=== PATIENT | female | born 1965 | race Caucasian/White ===

== ENCOUNTER 2016-08-11 12:47 | Outpatient (CLI) | payer MEDICAID ==
[~2016-08-11] VITALS: Ht 157.5 cm; Wt 154.3 kg
[2016-08-11 13:20] VITALS: BP 138/80
[2016-08-11 13:51] LABS: BASOPHILS # (AUTO) 0.1 10^3/uL (0.0-0.1); BASOPHILS % (AUTO) 1 % (0-10); EOSINOPHILS # (AUTO) 0.2 10^3/uL (0.0-0.3); EOSINOPHILS % (AUTO) 2 % (0-10); LYMPHOCYTES # (AUTO) 2.6 X 10^3 (1.0-4.0); LYMPHOCYTES % (AUTO) 33 % (12-44); MEAN CORPUSCULAR HEMOGLOBIN 30 PG (25-34); MEAN CORPUSCULAR HGB CONC 33 G/DL (32-36); MEAN CORPUSCULAR VOLUME 91 FL (80-99); MEAN PLATELET VOLUME 10.3 FL (7.4-10.4); MONOCYTES # (AUTO) 0.8 X 10^3 (0.0-1.0); MONOCYTES % (AUTO) 10 % (0-12); NEUTROPHILS # (AUTO) 4.3 X 10^3 (1.8-7.8); NEUTROPHILS % (AUTO) 55 % (42-75); PLATELET COUNT 305 10^3/uL (130-400); RED BLOOD COUNT 4.95 10^6/uL (4.35-5.85); RED CELL DISTRIBUTION WIDTH 16.3 % (10.0-14.5); WHITE BLOOD COUNT 7.9 10^3/uL (4.3-11.0)
[2016-08-11 14:07] LABS: ANION GAP 15 MMOL/L (5-14); BLOOD UREA NITROGEN 14 MG/DL (7-18); BUN/CREATININE RATIO 20; CALCIUM 9.9 MG/DL (8.5-10.1); CARBON DIOXIDE 24 MMOL/L (21-32); CHLORIDE 101 MMOL/L (98-107); CREATININE SERUM 0.71 MG/DL (0.60-1.30); GFR ESTIMATED > 60; GLUCOSE 201 MG/DL (70-105); POTASSIUM 3.4 MMOL/L (3.6-5.0); SODIUM 140 MMOL/L (135-145)
[2016-08-11] MEDS ORDERED: AMLO5TAB2 PO (16:03)
[2016-08-11] MEDS ORDERED: HYDR25TA4 PO (16:03)
[2016-08-11] MEDS ORDERED: METF500T8 PO (16:03)
[2016-08-11] MEDS ORDERED: VORT10TA PO (16:03)
[2016-08-11] MEDS ORDERED: ATEN50TA PO (16:03)
[2016-08-11] MEDS ORDERED: LURA20TA PO (16:03)
[2016-08-11] MEDS ORDERED: RT-ALBUINH IH (16:03)
[2016-08-11] MEDS ORDERED: ESTR0.5T PO (16:03)
[2016-08-11] MEDS ORDERED: ALB0.5V IH (16:03)
[2016-08-11] MEDS ORDERED: EVE1000C3 PO (16:03)
== END 2016-08-11 13:45 | disposition home or self-care (01) ==
LOC: PREOP 12:47
PROVIDERS: ATTEND Orthopaedic Surgery
DX: Z01.812 Encounter for preprocedural laboratory examination (principal); Z11.2 Encounter for screening for other bacterial diseases; M50.223 Other cervical disc displacement at C6-C7 level
CPT/HCPCS: 36415; 80048; 85025; 86850; 86900; 86901; 87081

== ENCOUNTER 2016-08-25 06:32 | Day surgery (SDC) | payer MEDICAID ==
[~2016-08-25] VITALS: Ht 157.5 cm; Wt 154.3 kg
[~2016-08-25 06:32] MED LIST: ALB0.5V IH; AMLO5TAB2 PO; ATEN50TA PO; ESTR0.5T PO; EVE1000C3 PO; HYDR25TA4 PO; LURA20TA PO; METF500T8 PO; RT-ALBUINH IH; VORT10TA PO
[2016-08-25 07:00] VITALS: BP 130/76
[2016-08-25] MEDS ORDERED: CATHETER FLUSH 10 ML SYR IV PRN (07:30)
[2016-08-25] MEDS ORDERED: CLINDAMYCIN 600 MG/NS 50 ML IVPB IV ONE ×2 (07:30)
[2016-08-25] MEDS ORDERED: ROCURONIUM 50 MG/5 ML (ZEMURON) VIAL IV ONE (07:45)
[2016-08-25] MEDS ORDERED: proPOfol 200 MG/20 ML (DIPRIVAN) VIAL IV ONE (07:45)
[2016-08-25] MEDS ORDERED: BACITRACIN 100,000 UNIT/NS 1000 ML POUR BOTTLE IR ONE ×2 (07:45)
[2016-08-25] MEDS ORDERED: LIDOCAINE PF 2% 5 ML (XYLOCAINE) VIAL ONE (07:45)
[2016-08-25] MEDS ORDERED: MIDAZOLAM 2 MG/2 ML (VERSED) VIAL ONE (07:46)
[2016-08-25] MEDS ORDERED: fentaNYL INJECTION 250 MCG/5 ML AMP ONE (07:46)
[2016-08-25] MEDS ORDERED: DEXMEDETOMIDINE 200 MCG/2 ML (PRECEDEX) VIAL IV ONE (07:50)
[2016-08-25] MEDS ORDERED: RT-ALBUTEROL SULF 2.5 MG/3 ML PRE-MIX VIAL ONE (07:51)
[2016-08-25] MEDS ORDERED: RT-ALBUTEROL SULF 2.5 MG/3 ML PRE-MIX VIAL IH STA (07:55)
[2016-08-25] MEDS ORDERED: NS (IVPB) 100 ML ONE (07:55)
[2016-08-25] MEDS ORDERED: LACTATED RINGERS 1,000 ML IV ONE ×2 (07:55→09:16)
[2016-08-25] MEDS: LACTATED RINGERS 1,000 ML IV PRN ×2 (07:56→09:33)
[2016-08-25] MEDS ORDERED: DEXAMETHASONE PF 10 MG/ML (DECADRON) VIAL ONE (09:15)
[2016-08-25] MEDS ORDERED: SEVOFLURANE (ULTANE) 15 ML INHAL SOLN ONE ×4 (09:16)
[2016-08-25] MEDS ORDERED: ONDANSETRON 4 MG/2 ML (SDV) Z0FRAN ONE (09:16)
[2016-08-25] MEDS ORDERED: GLYCOPYRROLATE 0.2 MG/ML (ROBINUL) 2 ML VIAL ONE (10:27)
[2016-08-25] MEDS ORDERED: NEOSTIGMINE (BLOXIVERZ ) 1 MG/1ML 10 ML VIAL ONE (10:27)
[2016-08-25] MEDS ORDERED: CYCLOBENZAPRINE 10 MG (FLEXERIL) TAB PO PRN (10:45)
[2016-08-25] MEDS ORDERED: BISACODYL 5 MG (DULCOLAX) TABLET PO PRN (10:45)
[2016-08-25] MEDS ORDERED: ONDANSETRON 4 MG/2 ML (SDV) Z0FRAN IV PRN (10:45)
[2016-08-25] MEDS ORDERED: MILK OF MAGNESIA 400 MG/5 ML 30 ML UDC PO PRN (10:45)
[2016-08-25] MEDS ORDERED: DOCUSATE SODIUM 100 MG (COLACE) CAP PO PRN (10:45)
[2016-08-25] MEDS ORDERED: ACETAMINOPHEN 325 MG TABLET/CAPLET (TYLENOL) PO PRN (10:45)
[2016-08-25] MEDS ORDERED: FAMOTIDINE 20 MG (PEPCID) TABLET PO SCH (10:45)
[2016-08-25] MEDS ORDERED: , IVP PRN (11:00)
[2016-08-25] MEDS ORDERED: morphine INJ 10 MG/ML 1ML (SYR OR VIAL) IVP PRN (11:00)
[2016-08-25 12:00] VITALS: BP 109/57
[2016-08-25] MEDS ORDERED: fentaNYL INJECTION 100 MCG/2 ML AMP IVP PRN (12:54)
[2016-08-25] MEDS: oxyCODONE/APAP 5/325MG (PERCOCET 5) TABLET PO PRN ×2 (14:47→20:03)
--- NOTE | 2016-08-25 14:48 | Diagnostic Imaging Report ---
EXAMINATION: Intraoperative views of the cervical spine. INDICATION: Cervical fusion of C6/[address] Barajas Fluoroscopy time provided is 30 seconds. IMPRESSION: Images provided demonstrate cervical spine in good alignment with anterior plate and screws along C6-7 seen with the disc cage placed. Dictated by: Dictated on workstation # [id number]
[2016-08-25] MEDS ORDERED: NS IV 1000 ML 1,000 ML IV SCH (15:15)
[2016-08-25 15:40] VITALS: BP 117/69
[2016-08-25] MEDS: NS IV 1000 ML 1,000 ML IV SCH (16:00)
[2016-08-25] MEDS: CLINDAMYCIN INJECTION 600 MG in NS (IVPB) 50 ML IV SCH (17:06)
[2016-08-25] MEDS: FAMOTIDINE 20 MG (PEPCID) TABLET PO SCH (20:02)
[2016-08-25] MEDS: SENNOSIDES 8.6 MG (SENOKOT) TAB PO SCH (20:02)
[2016-08-25 20:50] VITALS: BP 129/68
[2016-08-26 00:24] VITALS: BP 132/78
[2016-08-26] MEDS: CLINDAMYCIN INJECTION 600 MG in NS (IVPB) 50 ML IV SCH ×2 (00:31→09:41)
[2016-08-26 04:03] VITALS: BP 116/75
[2016-08-26] MEDS: NS IV 1000 ML 1,000 ML IV SCH (04:50)
[2016-08-26] MEDS: oxyCODONE/APAP 5/325MG (PERCOCET 5) TABLET PO PRN (06:21)
[2016-08-26] MEDS ORDERED: MULTIVIT W/MINERALS TAB (THERAGRAN M) PO SCH (07:00)
[2016-08-26] MEDS ORDERED: OXYC-197 PO (07:10)
--- NOTE | 2016-08-26 07:50 | Anesthesia-General Post-Op ---
General Patient Condition Mental Status/LOC: Same as Preop Cardiovascular: Satisfactory Nausea/Vomiting: Absent Respiratory: Satisfactory Pain: Controlled Complications: Absent Post Op Complications Complications None Follow Up Care/Instructions Patient Instructions None needed. Anesthesia/Patient Condition Patient Condition Patient is doing well, no complaints, stable vital signs, no apparent adverse anesthesia problems. No complications reported per nursing. D/C home per [facility] Criteria: No SHAMIR AZEVEDO CRNA Aug 26, 2016 07:50
[2016-08-26 08:00] VITALS: BP 127/82
--- NOTE | 2016-08-26 08:10 | Discharge Inst-Simple/Standard ---
Discharge Inst-Standard Discharge Medications New, Converted or Re-Newed RX: RX on Chart Patient Instructions/Follow Up Plan of Care/Instructions/FU: follow up in clinic in 2 weeks dont bend lift twist push or pull keep incision clean and dry Activity as Tolerated: No Discharge Diet: ADA Diet Return to The Hospital For: shortness of breath, weakness, change in mental status fever chills or wound drainage ANGELLA FERNANDEZ Aug 26, 2016 08:10
--- NOTE | 2016-08-26 08:17 | Progress Note (SOAP) ---
Subjective Date Seen by Provider: Aug 26, 2016 Time Seen by Provider: 07:00 Subjective/Events-last exam Laying in bed whittington x 4 with no complaints. Her LUE pain is gone and she demonstrates moving her UE without pain. She has no new symptoms to report. Review of Systems General: No Chills, No Night Sweats Pulmonary: Dyspnea, No Cough Cardiovascular: No: Chest Pain, Palpitations Gastrointestinal: No: Abdominal Pain, Nausea, Vomiting Musculoskeletal: neck pain Neurological: No: Change in speech, Confusion, Numbness, Weakness Objective Exam Vital Signs Date Time Temp Pulse Resp B/P (MAP) Pulse Ox O2 Delivery O2 Flow Rate FiO2 08/26/16 06:26 Nasal Cannula 3.00 08/26/16 04:03 96.4 69 20 116/75 95 Nasal Cannula 3.00 08/26/16 00:24 98.2 63 22 132/78 94 Nasal Cannula 3.00 08/25/16 20:50 97.4 67 20 129/68 93 Nasal Cannula 3.00 08/25/16 20:00 94 Nasal Cannula 3.00 08/25/16 15:40 96.0 68 20 117/69 95 Nasal Cannula 3.00 08/25/16 13:06 Nasal Cannula 3.00 08/25/16 12:00 98.0 83 20 109/57 93 Nasal Cannula 3.00 08/25/16 12:00 94 Nasal Cannula 3.00 I & O 08/26/16 07:00 Intake Total 3418 ml Output Total 850 ml Balance 2568 ml Capillary Refill : General Appearance: No Apparent Distress Respiratory: No Accessory Muscle Use, No Respiratory Distress Gastrointestinal: soft Extremity: Normal Range of Motion, Non Tender, No Calf Tenderness Neurologic/Psychiatric: Alert, Oriented x3, No Motor/Sensory Deficits Skin: Normal Color, Warm/Dry Assessment/Plan Assessment/Plan Assess & Plan/Chief Complaint Assessment: POD #1 s/p ACDF obesity diabetes COPD Plan: Elevate HOB IS at bedside monitor vitals possible d/c today Clinical Quality Measures DVT/VTE Risk/Contraindication: Risk Factor Score Per Nursin RFS Level Per Nursing on Admit: 4+=Very High ANGELLA FERNANDEZ Aug 26, 2016 08:17
[2016-08-26] MEDS: FAMOTIDINE 20 MG (PEPCID) TABLET PO SCH (09:41)
[2016-08-26] MEDS: SENNOSIDES 8.6 MG (SENOKOT) TAB PO SCH (09:41)
--- NOTE | 2016-08-26 09:58 | Physical Therapy Evaluation ---
PT Evaluation-General Medical Diagnosis Admission Date August 25, 2016 Medical Diagnosis: cervical herniation Onset Date: Aug 25, 2016 Therapy Diagnosis Therapy Diagnosis: debility Height/Weight Height (Feet): 5 Height (Inches): 2.00 Weight (Pounds): 340 Weight (Ounces): 2.0 Precautions Precautions/Isolations: Fall Prevention, Standard Precautions Referral Physician: Karl Reason for Referral: Evaluation/Treatment Medical History Additional Medical History per patient, unremarkable morbid obesity Current History s/p cervical repair due to herniation Reviewed History: Yes Social History Home: Single Level Current Living Status: Alone Prior/Core FIM Prior Level of Function Functional [place] Measure 0=Not Assessed/NA 4=Minimal Assistance 1=Total Assistance 5=Supervision or Setup 2=Maximal Assistance 6=Modified [place] 3=Moderate Assistance 7=Complete [place] Bed Mobility: 7 Transfers (B,C,W/C) (FIM): 7 Gait: 7 PT Evaluation-Current Subjective Patient rates cervical pain 3/10. Pain Numeric Pain Scale: 3 Location: Posterior Location Body Site: Neck Pain Description: Acute Objective Patient Orientation: Normal For Age Problem Solving: Good cervical collar ROM/Strength ROM Lower Extremities bilateral LE WNL Strenght Lower Extremities bilateral LE WNL Integumentary/Posture Integumentary refer to nursing notes Bowel Incontinence: No Bladder Incontinence: No Posture WNL Neuromuscular (Tone, Coordination, Reflexes) grossly intact Sensory Vision: Functional Hearing: Functional Sensation Right Lower Extremit: Intact Sensation Left Lower Extremity: Intact Transfers Functional [place] Measure 0=Not Assessed/NA 4=Minimal Assistance 1=Total Assistance 5=Supervision or Setup 2=Maximal Assistance 6=Modified [place] 3=Moderate Assistance 7=Complete [place] Transfers (B, C, W/C) (FIM): 6 Scootin Rollin Supine to/from Sit: 6 Sit to/from Stand: 6 Gait Mode of Locomotion: Walk Anticipated Mode of Locomotion: Walk Gait (FIM): 7 Distance (FIM): 3=150 ft Distance: 250' Gait Level of Assist: 7 Gait Assistive Device: None Comments/Gait Description safe and functional Balance Sitting Static: Normal Sitting Dynamic: Normal Standing Static: Normal Standing Dynamic: Normal Assessment/Needs 51 y.o. female, currently at [facility] with all gross motor skills, does not require skilled PT intervention at this time and has been instructed to ambulate PRN in hallway to prevent possible negative side effects. RN made aware. Rehab Potential: Good PT Plan Treatment/Plan Treatment Plan: Discontinue PT, goals met Treatment Plan: Other (eval) Treatment Duration: Aug 26, 2016 Frequency: 1 time per week Estimated Hrs Per Day: .25 hour per day Patient and/or Family Agrees t: Yes Safety Risks/Education Patient Education: Safety Issues Teaching Recipient: Patient Teaching Methods: Discussion Response to Teaching: Verbalize Understanding Discharge Recommendations Therapy D/C Recommendations: Home Independently Time/GCodes Time In: 906 Time Out: 916 Total Billed Treatment Time: 10 Total Billed Treatment 1 visit EVLowC 10 min MISTY ANGUIANO PT Aug 26, 2016 09:58
--- NOTE | 2016-08-26 10:42 | OPERATIVE REPORT ---
PROCEDURE PHYSICIAN: FRANCHESKA NASH DATE OF PROCEDURE: 08/25/2016 SURGEON: Dr. Karl D.O. EXECUTIVE DIRECTOR [employer] MARKETING: FIDE Otoole. This is a medically necessary procedure and painter assistant is necessary for retraction of vital neurovascular structures. Without an painter assistant, the procedure would not be possible. PREOPERATAIVE 1. Morbid obesity. 2. Cervical spinal stenosis, C6-7. 3. Herniated nucleus pulposus. POSTOPERATIVE DIAGNOSIS: 1. Morbid obesity. 2. Cervical spinal stenosis, C6-7 3. Herniated nucleus pulposus. PROCEDURE PERFORMED: 1. C6-7 anterior cervical discectomy and fusion. 2. Application of titanium cage, C6-7. 3. Application of anterior instrumentation, C6-7. 4. Use of human allograft for spine. 5. Use of local bone autograft. COMPLICATIONS: None. SPECIMENS SENT: None. DRAIN PLACED: Hemovac. INSTRUMENTATIONI UTILIZED: Nuvasive. HISTORY OF PRESENT ILLNESS: Ms. Cowart is a very pleasant 51-year-old morbidly obese female with a large, C6-7 paracentral herniation. She failed conservative treatment. She had extreme unrelenting upper extremity nerve pain. She did wish to proceed with operative intervention. OPERATION: The patient was identified by name on wrist band in the preoperative holding area. Her operative site was signed, consent was signed. SCDs were placed, neural monitoring was hooked up and antibiotics were started. She was taken operating room theater, placed under general endotracheal tube anesthesia and transferred to the operating room table in the supine position. She was prepped and draped in the usual sterile fashion. A formal timeout was conducted. At this point, a left-sided incision was made over the old medial aspect of the left sternocleidomastoid. Standard anterior cervical approach then took place. I placed a self retaining retractor, placed a Cash pin in the body of 6 and the body of 7. I placed distraction across the disc space. Please note that this entire process the entire procedure was made extremely difficult due to the patient's large body habitus. This made very difficult to identify the level that we were working on and once we were there accomplish the discectomy and fusion. At this point, I verified under lateral x-ray that my Cash pins were in the body of C6 and the body of C7. I then performed a discectomy and I took down the posterior longitudinal ligament, did bilateral foraminotomies. I then sized and chose the appropriate titanium cage, which I packed with human allograft and local bone autograft. I seated in the midline position. I then removed the Cash pin, placed a midline plate. I placed 2 screws in the body of 6 and 2 screws in the body of 7. I final tighten those screws. Final AP and lateral x-ray demonstrated appropriate positioning of the hardware. Neural monitoring had been stable throughout the procedure. I maintained hemostasis. I irrigated the wound. I closed the wound in my usual layered fashion utilizing 3-0 followed by running 4-0 Monofilament suture. I applied dressings. Took the patient in supine position to the PACU where she awoke without incident. She tolerated the procedure well. PLAN: The plan at this time is to admit the patient tonight for IV antibiotics, IV pain control and postoperative monitoring. Plan to discontinue her drain tomorrow discharge her home tomorrow. She knows to keep her wound clean and dry. She knows to wear her brace when she is out of bed. Job ID: [id number] Dictated Date: 08/25/2016 10:47:17 Clinical Assistant Professor Date: 08/26/2016 10:20:42 / manish
--- NOTE | 2016-08-26 11:34 | Occ Therapy Progress Note ---
Therapy Progress Note 1105 to 1110 Pt seen in room, up in bed. Pt has been released to be up ad helen and said that she has been taking herself to the bathroom, brushing her teeth, feeding herself. She said she has no numbness or tingling in UEs - has a shoulder problem that is pending treatment, not related to this surgery. She has adult children at home and anticipates no concerns re: self care. Pt to be discharged today. DC OT, no skilled need. visit YOBANI DE LA TORRE OT Aug 26, 2016 11:34
--- NOTE | 2016-08-26 11:37 | Diagnostic Imaging Report ---
INDICATION: Postop cervical spine fusion. COMPARISON: None. FINDINGS: Frontal and lateral radiographic views of the cervical spine were obtained and show postsurgical changes of anterior fusion at the C6-C7 level. Cervical spine is only well seen to the C6-C7 intervertebral disc space level. Evaluation beyond this is obscured secondary to overlying bony and soft tissue structures. Surgical hardware appears to be in appropriate position. Static alignment of the cervical spine is maintained. Vertebral body heights are preserved. No unexpected radiopaque foreign bodies are identified. There does appear to be some prevertebral soft tissue swelling. IMPRESSION: 1. There does appear to be some prevertebral soft tissue swelling, which may be related to recent post surgical status. 2. Otherwise, expected postsurgical changes of anterior fusion at the C6-C7 levels. Dictated by: Dictated on workstation # [id number]
[2016-08-26 13:34] VITALS: BP 127/82
== END 2016-08-26 13:37 | disposition home or self-care (01) ==
LOC: SDC 06:32 → 4TH 12:15 → SDC 08-26 13:37
PROVIDERS: ATTEND Orthopaedic Surgery
DX: M48.02 Spinal stenosis, cervical region (principal); M50.20 Other cervical disc displacement, unspecified cervical region; I10 Essential (primary) hypertension; J44.9 Chronic obstructive pulmonary disease, unspecified; E11.9 Type 2 diabetes mellitus without complications; Z79.899 Other long term (current) drug therapy; G47.33 Obstructive sleep apnea (adult) (pediatric); J45.909 Unspecified asthma, uncomplicated; E66.01 Morbid (severe) obesity due to excess calories; Z87.891 Personal history of nicotine dependence; F31.9 Bipolar disorder, unspecified; Z68.44 Body mass index [BMI] 60.0-69.9, adult
CPT/HCPCS: 72040; 82962; 94640; 94664

== ENCOUNTER 2018-02-24 09:40 | Outpatient (CLI) | payer MEDICAID ==
[~2018-02-24] VITALS: Ht 157.5 cm; Wt 142.4 kg
[~2018-02-24 09:40] MED LIST changes: -AMLO5TAB2 PO; +AMLO5TAB7 PO; +OXYC1TAB87 PO
[2018-02-24 09:49] VITALS: BP 129/78
[2018-02-24] MEDS ORDERED: ATEN25TA PO (10:34)
[2018-02-24 10:42] LABS: BASOPHILS # (AUTO) 0.1 10^3/uL (0.0-0.1); BASOPHILS % (AUTO) 1 % (0-10); EOSINOPHILS # (AUTO) 0.2 10^3/uL (0.0-0.3); EOSINOPHILS % (AUTO) 3 % (0-10); HEMATOCRIT 44 % (35-52); HEMOGLOBIN 14.6 G/DL (11.5-16.0); LYMPHOCYTES # (AUTO) 2.9 X 10^3 (1.0-4.0); LYMPHOCYTES % (AUTO) 33 % (12-44); MEAN CORPUSCULAR HEMOGLOBIN 30 PG (25-34); MEAN CORPUSCULAR HGB CONC 33 G/DL (32-36); MEAN CORPUSCULAR VOLUME 89 FL (80-99); MEAN PLATELET VOLUME 10.2 FL (7.4-10.4); MONOCYTES % (AUTO) 12 % (0-12); NEUTROPHILS # (AUTO) 4.4 X 10^3 (1.8-7.8); NEUTROPHILS % (AUTO) 51 % (42-75); PLATELET COUNT 316 10^3/uL (130-400); RED CELL DISTRIBUTION WIDTH 16.7 % (10.0-14.5); WHITE BLOOD COUNT 8.6 10^3/uL (4.3-11.0)
[2018-02-24] MEDS ORDERED: CHOL200085 PO (10:42)
[2018-02-24] MEDS ORDERED: CINN500C2 PO (10:42)
[2018-02-24] MEDS ORDERED: ASPI-983 PO (10:42)
[2018-02-24] MEDS ORDERED: ATEN50TA PO (10:42)
[2018-02-24] MEDS ORDERED: DICY10CA12 PO (10:42)
[2018-02-24] MEDS ORDERED: ESCI20TA45 PO (10:42)
[2018-02-24] MEDS ORDERED: BUPR150T7 PO (10:42)
[2018-02-24] MEDS ORDERED: CIDE600C PO (10:42)
[2018-02-24 10:58] LABS: BUN/CREATININE RATIO 17; CALCIUM 9.9 MG/DL (8.5-10.1); CARBON DIOXIDE 23 MMOL/L (21-32); CHLORIDE 101 MMOL/L (98-107); CREATININE SERUM 0.77 MG/DL (0.60-1.30); GFR ESTIMATED > 60; GLUCOSE 111 MG/DL (70-105); POTASSIUM 3.6 MMOL/L (3.6-5.0); SODIUM 137 MMOL/L (135-145)
== END 2018-02-24 10:45 | disposition home or self-care (01) ==
LOC: PREOP 09:40
PROVIDERS: ATTEND Orthopaedic Surgery
DX: Z01.812 Encounter for preprocedural laboratory examination (principal); Z11.2 Encounter for screening for other bacterial diseases; M48.02 Spinal stenosis, cervical region
CPT/HCPCS: 36415; 80048; 85025; 87081

== ENCOUNTER 2018-03-01 09:20 | Day surgery (SDC) | payer MEDICAID ==
[~2018-03-01] VITALS: Ht 157.5 cm; Wt 141.1 kg
[~2018-03-01 09:20] MED LIST changes: -AMLO5TAB7 PO; +AMLO5TAB9 PO; +ASPI-983 PO; +ATEN25TA PO; +BUPR150T7 PO; +CHOL200014 PO; +CIDE600C PO; +CINN500C2 PO; +DICY10CA12 PO; +ESCI20TA45 PO
[2018-03-01] MEDS ORDERED: LACTATED RINGERS 1,000 ML IV PRN (09:24)
[2018-03-01] MEDS ORDERED: BACITRACIN 100,000 UNIT/NS 1000 ML POUR BOTTLE IR ONE ×2 (09:45)
--- OUTSIDE RECORDS SUMMARY | 2018-03-01 09:45 | XMS REPORT ---
Author Author MINERVA MELVIN [facility] Address [address] [facility] [place] [address] Care Team Providers Care Tax Adjuster Name Role Phone OLEGARIO MINERVA Unavailable PROBLEMS Type Condition ICD9-CM Code [id number] Code Onset Dates Condition Status SNOMED Code Problem Unspecified vaginitis and vulvovaginitis 616.10 Active 683078497 Problem Unspecified essential hypertension 401.9 Active 42476733 Problem Acute sinusitis, unspecified 461.9 Active 39699134 Problem Pure hyperglyceridemia 272.1 Active 297722351 Problem Obesity, unspecified 278.00 Active 542887879 Problem Allergic rhinitis due to pollen 477.0 Active 20815035 Problem Essential hypertension, benign 401.1 Active 5941042 Problem Morbid obesity 278.01 Active 384346983 Problem Tension headache 307.81 Active 991673504 Problem Other screening mammogram V76.12 Active 45135919 Problem Routine gynecological examination V72.31 Active 220356214125282 Problem Need for prophylactic vaccination and inoculation, Influenza V04.81 Active 606949044 Problem Unspecified breast screening V76.10 Active 732069654 Problem Unspecified sleep disturbance 780.50 Active 35686445 Problem Other specified counseling V65.49 Active 519342911 Problem Asthma, unspecified, unspecified status 493.90 Active 27146706 ALLERGIES Substance Reaction Event Type Date Status Codeine Unknown Drug Allergy Dec, Active Penicillins Unknown Non Drug Allergy Dec, Active ENCOUNTERS Encounter Location Date Diagnosis [facility] [address] [id number][place] [id number] Dec, [facility] [address] [facility] [id number][place] [id number] Dec, Caries K02.9 [facility] [address] [id number] [facility] [id number][place] [id number] 12 Oct, 2018 Encounter for immunization Z23 [facility] [address] [id number][place] [id number] Sep, Dental examination Z01.20 [facility] [address] [id number] [id number] Feb, [facility] [id number][place] [id number] June, [facility] [address] [facility] [id number] [place] [address] May, [facility] [address] [id number], [place] [address] May, [facility] [id number] [place] [address] Apr, [facility] [id number] [place] [address] Apr, [facility] [id number] [place] [address] Jan, [facility] [address]65100[place], [place] [address] Jan, [facility] [address]65[address], [place] [address] Dec, [facility] [address], [place] [address] Dec, [facility] [address] [id number], [place] [address] Dec, [facility] [place] [facility] [address] [id number], [place] [address] Dec, [facility] [place] [facility] [address]65[address], [place] [address] Dec, [facility] [address] [id number], [place] [address] Dec, [facility] [id number] [place] [address] Dec, [facility] [place] [facility] [address] [id number], [place] [address] Dec, [facility] [place] [facility] [address] [id number], [place] [address] Nov, [facility] [place] [facility] [address] [id number], [place] [address] Nov, [facility] [place] [facility] [address] [id number], [place] [address] Nov, [facility] [place] [facility] [address] [id number] [place] [address] Nov, [facility] [place] [facility] [address] [id number] [place] [address] Oct, [facility] [place] [facility] [address] [id number], [place] [address] Oct, [facility] [place] [facility] [address] [id number], [place] [address] Oct, [facility] [address] [id number][place] [id number] Oct, [facility] [place] [facility] [address] [facility] [id number], [place] [address] 15 Oct, 2013 [facility] [place] [facility] [address] [id number], [place] [address] Oct, [facility] [place] [facility] [address] [id number], [place] [address] 11 Oct, 2013 [facility] [place] [facility] [address] [id number], [place] [address] 10 Oct, 2013 [facility] [place] [facility] [address] [id number], [place] [address] Oct, [facility] [place] [facility] [address] [id number], [place] [address] Oct, [facility] [place] [facility] [address] [id number] [place] [address] Oct, [facility] [place] [facility] [address] [id number] [place] [address] Aug, [facility] [place] [facility] [address] [id number] [place] [address] Aug, [facility] [place] [facility] [address] [id number] [place] [address] Aug, [facility] [place] [facility] [address] [id number] [place] [address] Aug, [facility] [place] [facility] [address] [id number] [place] [address] Aug, [facility] [place] [facility] [address] [id number] [place] [address] Aug, [facility] [place] [facility] [address] [id number] [place] [address]- [address] Aug, [facility] [place] [facility] [address] [id number] [place] [address] Jul, [facility] [place] [facility] [address] [id number] [place] [address]- [address] Jul, [facility] [place] [facility] [address] [id number] [place] [address] Jul, [facility] [place] [facility] [address] [id number] [place] [address]- 6[address] Jul, [facility] [place] [facility] [address] [id number] [place] [address]- [address]368 June, [facility] [place] [facility] [address] [id number] [place] [address]- [address] June, [facility] [place] [facility] [address] [id number] [place] [address] May, [facility] [place] [facility] [address] [id number] [place] [address]- [address] May, [facility] [place] [facility] [address] [id number] [place] [address]- 0658 May, [facility] [address] [id number] [place] [address]- [address] May, [facility] [address] [id number] [place] [address] 74[address] May, [facility] [address] [id number] [place] [address]- [address] May, [facility] [address] [id number] [place] [address]- [address] Apr, [facility] [address] [id number] [place] [address]- 79[address] Apr, [facility] [address] [id number] [place] [address]- [address] Feb, [facility] [address] [id number] [place] [address]- [address] Feb, [facility] [address] [id number] [place] [address]- [address] Jan, [facility] [address] [id number] [place] [address]- [address]79 Jan, [facility] [address] [id number] [place] [address]- 3216 Jan, [facility] [address] [id number] [place] [address]- [address] Jan, [facility] [address] [id number] [place] [address]- 5693 Jan, [facility] [address] [id number] [place] [address]- [address] Jan, [facility] [address] [id number] [place] [id number] Sep, [facility] [address] [id number] [place] [address] Sep, [facility] [address] [facility] [id number], [place] [address] Sep, [facility] [address] [facility] [id number], [place] [address] Jul, [facility] [address] [facility] [id number], [place] [address] Jul, [facility] [address] [id number] [id number] Jul, [facility] [address] [facility] [id number], [place] [address] June, [facility] [address] [id number] [address] June, [facility] [address] [id number], [place] [address] June, [facility] [address] [id number], [place] [address] May, IMMUNIZATIONS No Known Immunizations SOCIAL HISTORY Never Assessed REASON FOR VISIT Abe franco PLAN OF CARE Activity Details Follow Up 4 Weeks Reason:TE #17 VITAL SIGNS Height 64 in 2017-12-14 Blood pressure systolic 116 mmHg 2017-12-14 Blood pressure diastolic 77 mmHg 2017-12-14 MEDICATIONS Medication Instructions Dosage Frequency Start Date End Date Duration Status BuPROPion HCl Active Hydrochlorothiazide 12.5 mg 1 Tablet by Oral route 1 time per day Dec, Active Flagyl 500 mg 1 tablet by Oral route 2 times per day for 7 days Dec Not-Taking Escitalopram Oxalate Active Albuterol Sulfate 2.5 mg /3 mL (0.083 %) every 4-6 hours June, Active Metformin HCl Active Azithromycin 250 mg 2 Tablet by Oral route on day 1 then take 1 daily for 5 days Jan, Not-Taking Doxycycline Active Qvar 80 mcg/actuation 2 Puff by Oral route every 12 hours rinse mouth before and after use Dec, Not-Taking Lisinopril 10 mg take 1 tablet by Oral route 1 time per day Take in am Dec, Not-Taking Hydrocortisone 2.5 % 1 adelaide by Topical route 3 times per day June, Not-Taking Celexa 20 mg 1 Tablet 1 time per day Dec, Not-Taking Naproxen 500 mg take 1 tablet (500 mg) by oral route 2 times per day with food PRN Nov, Not-Taking ProAir HFA 90 mcg/actuation Inhalation every 4-6 hrs 2 puffs as needed Nov, 30 days Active Claritin 10 mg 1 Tablet by Oral route 1 time per day Apr, Not-Taking Aspirin 81 Active Dicyclomine HCl Active Simvastatin 20 mg 1 tablet by Oral route 1 time per day Dec, Not-Taking Atenolol 50 mg 1 Tablet by Oral route 1 time per day Dec, Active amlodipine 5 mg 1 Tablet by Oral route 1 time per day Dec, Active Tamiflu 75 MG Orally Once a day 1 capsule 24h 20 Feb, 2016 10 days Not -Taking RESULTS No Results PROCEDURES Procedure Date Ordered Result Body Site EXTRAC ERUPTED TOOTH/EXPOSED ROOT Dec 14, 2017 EXTRAC ERUPTED TOOTH/EXPOSED ROOT Dec 14, 2017 INSTRUCTIONS MEDICATIONS ADMINISTERED No Known Medications MEDICAL (GENERAL) HISTORY Type Description Date Medical History HBP Medical History Depresion Medical History Diabetes II Surgical History Complete Hysterectomy Surgical History Spleen removed due to cancer 2013 Surgical History Breast biopsy 1979 Surgical History Colon surgery 1993 Surgical History Neck surgery 2016 Hospitalization History Possible anuersym August 2017 Hospitalization History Hysterectomy Hospitalization History Colon surgery and spleen
--- OUTSIDE RECORDS SUMMARY | 2018-03-01 09:45 | XMS REPORT ---
Author Author MINERVA MELVIN [facility] Address [address] [place] [address] Care Team Providers Care Operations General Agent Name Role Phone OLEGARIO MINERVA Unavailable PROBLEMS Type Condition ICD9-CM Code ZNU22-UV Code Onset Dates Condition Status SNOMED Code Problem Unspecified vaginitis and vulvovaginitis 616.10 Active 994369260 Problem Unspecified essential hypertension 401.9 Active 98076709 Problem Acute sinusitis, unspecified 461.9 Active 43832942 Problem Pure hyperglyceridemia 272.1 Active 236473168 Problem Obesity, unspecified 278.00 Active 899827075 Problem Allergic rhinitis due to pollen 477.0 Active 54779020 Problem Essential hypertension, benign 401.1 Active 6177524 Problem Morbid obesity 278.01 Active 500699722 Problem Tension headache 307.81 Active 549273472 Problem Other screening mammogram V76.12 Active 82158529 Problem Routine gynecological examination V72.31 Active 069866082303852 Problem Need for prophylactic vaccination and inoculation, Influenza V04.81 Active 289448000 Problem Unspecified breast screening V76.10 Active 695025919 Problem Unspecified sleep disturbance 780.50 Active 39432152 Problem Other specified counseling V65.49 Active 794354104 Problem Asthma, unspecified, unspecified status 493.90 Active 63805729 ALLERGIES Substance Reaction Event Type Date Status Codeine Unknown Drug Allergy Dec, Active Penicillins Unknown Non Drug Allergy Dec, Active ENCOUNTERS Encounter Location Date Diagnosis [facility] [address] [id number] [id number] Mar, [facility] [address] [id number] [place] [id number] Dec, [facility] K02.9 [facility] [address] [id number] [place] [id number] 05 Nov, 2018 Caries K02.[address] [facility] [address] [id number] [place] [id number] Nov, Encounter for immunization Z23 [facility] [id number] [place] [id number] Sep, Dental examination Z01.20 [facility] [address] [id number] [id number] Feb, [facility] [id number] [place] [id number] June, [facility] [address] [facility] [id number], [place] [address] May, [facility] [id number] [place] [address] May, [facility] [id number] [place] [address] 8770 Apr, [facility] [id number] [place] [address]- 4758 Apr, [facility] [address] [id number], [place] [address] Jan, [facility] [place] [facility] [address] [id number], [place] [address] Jan, [facility] [place] [facility] [address]00565100[place], [place] [address] Dec, [facility] [place] [facility] [address] [id number], [place] [address] Dec, [facility] [place] [facility] [address] [facility] [id number], [place] [address] Dec, [facility] [place] [facility] [address] [facility] [id number], [place] [address] 1377 Dec, [facility] [place] [facility] [address] [id number], [place] [address] 1947 Dec, [facility] [place] [facility] [id number] [place] [address], [place] [address] Dec, [facility] [place] [facility] [address] [id number] [place] [address] 2028 Dec, [facility] [place] [facility] [address] [id number] [place] [address] 9974 Dec, [facility] [place] [facility] [address] [id number] [place] [address] 64[address] Nov, [facility] [place] [facility] [address] [id number] [place] [address] 8369 Nov, [facility] [place] [facility] [address] [id number] [place] [address] 0356 Nov, [facility] [place] [facility] [address] [id number] [place] [address] 1278 Nov, [facility] [place] [facility] [address] [id number] [place] [address]- 7599 Oct, [facility] [place] [facility] [address] [id number] [place] [address] 2804 26 Oct, 2013 [facility] [place] [facility] [address] [id number] [place] [address] 8287 25 Oct, [address] [facility] [address] [id number] [place] [id number] 25 Oct, 2013 [facility] [place] [facility] [address] [id number], [place] [address] 15 Oct, 2013 [facility] [place] [facility] [address] [id number], [place] [address] 8065 11 Oct, 2013 [facility] [place] [facility] [address] [id number] [place] [address] 8432 11 Oct, 2013 [facility] [place] [facility] [address] [id number] [place] [address]- 9642 10 Oct, 2013 [facility] [place] [facility] [address] [id number] [place] [address]- 6038 03 Oct, 2013 [facility] [place] [facility] [address] [id number] [place] [address]- 2546 Oct, [facility] [place] [facility] [address] [id number] [place] [address]- 9518 Oct, [facility] [place] [facility] [address] [id number] [place] [address]- 0376 Aug, [facility] [place] [facility] [address] [id number] [place] [address]- 6955 Aug, [facility] [place] [facility] [address] [id number] [place] [address]- 3905 Aug, [facility] [place] [facility] [address] [id number] [place] [address]- 7828 Aug, [facility] [place] [facility] [address] [id number] [place] [address] 0957 Aug, [facility] [place] [facility] [address] [id number] [place] [address]- 6532 Aug, [facility] [place] [facility] [address] [id number] [place] [address]- 1557 Aug, [facility] [place] [facility] [address] [id number] [place] [address]- 4668 Jul, [facility] [place] [facility] [address] [id number] [place] [address]- 3653 Jul, [facility] [place] [facility] [address] [id number] [place] [address]- 4407 Jul, [facility] [place] [facility] [address] [id number] [place] [address]- 3875 Jul, [facility] [place] [facility] [address] [id number] [place] [address]- 8131 June, [facility] [place] [facility] [address] [id number] [place] [address]- 5726 June, [facility] [place] [facility] [address] [id number] [place] [address]- 6310 May, [facility] [address] [id number] [place] [address]- 7280 May, [facility] [place] [facility] [address] [id number] [place] [address]- 0056 May, [facility] [address] [id number] [place] [address]- 7875 May, [facility] [place] [facility] [address] [id number] [place] [address]- 8857 May, [facility] [address] [id number] [place] [address]- 0766 May, [facility] [place] [facility] [address] [id number] [place] [address]- 4592 Apr, [facility] [address] [id number] [place] [address]- 7620 Apr, [facility] [address] [id number] [place] [address]- 2555 Feb, [facility] [address] [id number] [place] [address]- 9006 Feb, [facility] [address] [facility] [id number] [place] [address]- 9313 Jan, [facility] [address] [id number], [place] [address]- 9637 Jan, [facility] [place] [facility] [address] [id number], [place] [address]- 0308 Jan, [facility] [place] [facility] [address] [id number] [place] [address]- 3464 18 Jan, 2013 [facility] [place] [facility] [address] [facility] [id number] [place] [address]- 9965 Jan, [facility] [place] [facility] [address] [facility] [id number], [place] [address]- 1346 17 Jan, [address] [facility] [address] [id number] [place] [id number] Sep, [facility] [address] [facility] [id number], [place] [address]- 2546 Sep, [facility] [address] [facility] [id number], [place] [address]- 2546 Sep, [facility] [address] [id number], [place] [address]956 Jul, [facility] [address] [facility] [id number], [place] [address]- 2546 Jul, [facility] [address] [facility] [id number] [place] [id number] Jul, [facility] [address] [id number], [place] [address]- 2546 June, [facility] [address] [id number], [place] [address] 1156 June, [facility] [address] [id number], [place] [address]- 2546 June, [facility] [address] [facility] [id number], [place] [address]- 5726 May, IMMUNIZATIONS No Known Immunizations SOCIAL HISTORY Never Assessed REASON FOR VISIT Extraction, Abe WALDRON PLAN OF CARE Activity Details Follow Up 4 Weeks Reason:Filling #29 VITAL SIGNS Height 64 in 2018-01-05 Blood pressure systolic 132 mmHg 2018-01-05 Blood pressure diastolic 78 mmHg 2018-01-05 MEDICATIONS Medication Instructions Dosage Frequency Start Date End Date Duration Status Aspirin 81 Active ProAir HFA 90 mcg/actuation Inhalation every 4-6 hrs 2 puffs as needed Nov, 30 days Active Naproxen 500 mg take 1 tablet (500 mg) by oral route 2 times per day with food PRN Nov, Not-Taking Metformin HCl Active Albuterol Sulfate 2.5 mg /3 mL (0.083 %) every 4-6 hours June, Active Escitalopram Oxalate Active Azithromycin 250 mg 2 Tablet by Oral route on day 1 then take 1 daily for 5 days Jan, Not-Taking Atenolol 50 mg 1 Tablet by Oral route 1 time per day Dec, Active Qvar 80 mcg/actuation 2 Puff by Oral route every 12 hours rinse mouth before and after use Dec, Not-Taking Claritin 10 mg 1 Tablet by Oral route 1 time per day Apr, Not-Taking Hydrocortisone 2.5 % 1 adelaide by Topical route 3 times per day June, Not-Taking Flagyl 500 mg 1 tablet by Oral route 2 times per day for 7 days Dec Not-Taking Celexa 20 mg 1 Tablet 1 time per day Dec, Not-Taking Hydrochlorothiazide 12.5 mg 1 Tablet by Oral route 1 time per day Dec, Active Lisinopril 10 mg take 1 tablet by Oral route 1 time per day Take in am Dec, Not-Taking BuPROPion HCl Active Dicyclomine HCl Active Tamiflu 75 MG Orally Once a day 1 capsule 24h Feb, 10 days Not -Taking Doxycycline Active amlodipine 5 mg 1 Tablet by Oral route 1 time per day Dec, Active Simvastatin 20 mg 1 tablet by Oral route 1 time per day Dec, Not-Taking RESULTS No Results PROCEDURES Procedure Date Ordered Result Body Site EXTRAC ERUPTED TOOTH/EXPOSED ROOT Jan 05, 2018 INSTRUCTIONS MEDICATIONS ADMINISTERED No Known Medications MEDICAL [...]
--- OUTSIDE RECORDS SUMMARY | 2018-03-01 09:46 | XMS REPORT ---
Author Author DONATO CONLEY [facility] Address [address] [place] [address] Care Team Providers Care Outpatient Coding Specialist Name Role Phone DONATO CONLEY Unavailable PROBLEMS Type Condition ICD9-CM Code [id number] Code Onset Dates Condition Status SNOMED Code Problem Unspecified vaginitis and vulvovaginitis 616.10 Active 369597046 Problem Unspecified essential hypertension 401.9 Active 63455090 Problem Acute sinusitis, unspecified 461.9 Active 76031190 Problem Pure hyperglyceridemia 272.1 Active 290240537 Problem Obesity, unspecified 278.00 Active 539151582 Problem Allergic rhinitis due to pollen 477.0 Active 92232355 Problem Essential hypertension, benign 401.1 Active 8374194 Problem Morbid obesity 278.01 Active 233544797 Problem Tension headache 307.81 Active 502405557 Problem Other screening mammogram V76.12 Active 79543017 Problem Routine gynecological examination V72.31 Active 984324447273448 Problem Need for prophylactic vaccination and inoculation, Influenza V04.81 Active 919241896 Problem Unspecified breast screening V76.10 Active 546937792 Problem Unspecified sleep disturbance 780.50 Active 78063341 Problem Other specified counseling V65.49 Active 508225084 Problem Asthma, unspecified, unspecified status 493.90 Active 50250968 ALLERGIES Substance Reaction Event Type Date Status Codeine Unknown Drug Allergy Sep, Active Penicillins Unknown Non Drug Allergy Sep, Active ENCOUNTERS Encounter Location Date Diagnosis [facility] [address] [id number] [place] [id number] Dec, [facility] [address] [id number] [place] [id number] Sep, Dental examination Z01.20 [facility] [address] [id number] [place] [id number] Feb, [facility] [address] [id number][place] [id number] June, [facility] [place] [facility] [address] [facility] [id number] [place] [address]- 1883 14 May, 2014 [facility] [place] [facility] [address] [facility] [id number], [place] [address]- 9720 May, [facility] [place] [facility] [address] [facility] [id number], [place] [address]- 1794 30 Apr, 2014 [facility] [place] [facility] [address] [facility] [id number], [place] [address]- 1217 Apr, [facility] [place] [facility] [address] [facility] [id number] [place] [address]- 1361 Jan, [facility] [place] [facility] [address] [facility] [id number] [place] [address]- 6390 Jan, [facility] [place] [facility] [address] [id number] [address]- 1147 Dec, [facility] [place] [facility] [address] [id number], [place] [address]- 1805 Dec, [facility] [place] [facility] [address] [id number] [place] [address]- 9382 Dec, [facility] [place] [facility] [address] [id number], [place] [address]- 0546 Dec, [facility] [place] [facility] [address] [id number], [place] [address]- 9151 Dec, [facility] [place] [facility] [address] [facility] [id number], [place] [address]- 9695 Dec, [facility] [place] [facility] [address] [facility] [id number], [place] [address]- 0088 Dec, [facility] [place] [facility] [address] [facility] [id number], [place] [address]- 8944 Dec, [facility] [place] [facility] [address] [facility] [id number], [place] [address]- 6232 Nov, [facility] [place] [facility] [address] [id number] [place] [address]- 6705 Nov, [facility] [place] [facility] [address] [id number] [place] [address] Nov, [facility] [place] [facility] [address] [id number] [place] [address]- 9303 Nov, [facility] [place] [facility] [address] [id number] [place] [address]- 9389 Oct, [facility] [place] [facility] [address] [id number] [place] [address]- 8545 Oct, [facility] [address] [id number] [place] [address]- 9397 Oct, [facility] [address] [id number] [place] [id number] Oct, [facility] [place] [facility] [address] [id number] [place] [address]- 7706 Oct, [facility] [place] [facility] [address] [id number] [place] [address] 2540 Oct, [facility] [place] [facility] [address] [id number] [place] [address]- 2540 Oct, [facility] [place] [facility] [address] [id number] [place] [address]- 0717 Oct, [facility] [place] [facility] [address] [id number] [place] [address] 2542 Oct, [facility] [place] [facility] [address] [id number] [place] [address] 2540 Oct, [facility] [place] [facility] [address] [id number] [place] [address]- 2546 Oct, [facility] [place] [facility] [address] [id number] [place] [address] 2546 Aug, [facility] [place] [facility] [address] [id number] [place] [address]- 8676 Aug, [facility] [place] [facility] [address] [id number] [place] [address]- 0429 Aug, [facility] [place] [facility] [address] [id number] [place] [address]- 0173 Aug, [facility] [place] [facility] [address] [id number] [place] [address]- 8301 Aug, [facility] [place] [facility] [address] [id number] [place] [address]- 9588 Aug, [facility] [place] [facility] [address] [id number] [place] [address]- 6685 Aug, [facility] [place] [facility] [address] [id number] [place] [address]- 7779 Jul, [facility] [place] [facility] [address] [id number] [place] [address]- 2241 Jul, [facility] [place] [facility] [address] [id number] [place] [address]- 1703 Jul, [facility] [place] [facility] [address] [id number] [place] [address]- 3443 Jul, [facility] [place] [facility] [address] [id number] [place] [address]- 0928 June, [facility] [place] [facility] [address] [id number] [place] [address]- 8860 June, [facility] [place] [facility] [address] [id number] [place] [address]- 5560 May, [facility] [place] [facility] [address] [id number] [place] [address]- 2889 May, [facility] [place] [facility] [address] [id number] [place] [address]- 0604 May, [facility] [place] [facility] [address] [id number] [place] [address]- 2087 May, [facility] [place] [facility] [address] [id number] [place] [address]- 0682 May, [facility] [address] [id number] [place] [address]- 5794 May, [facility] [place] [facility] [address] [id number] [place] 6348 Apr, [facility] [address] [id number] [place] [address]- 7501 Apr, [facility] [place] [facility] [address] [id number] [place] [address]- 5474 Feb, [facility] [address] [id number] [place] [address]- 4738 Feb, [facility] [place] [facility] [address] [id number] [place] [address]- 4501 Jan, [facility] [address] [id number] [place] [address]- 3927 Jan, [facility] [address] [id number] [place] [address]- 8756 Jan, [facility] [address] [id number] [place] [address]- 8586 Jan, [facility] [address] [id number] [place] [address]- 2793 Jan, [facility] [address] [id number] [place] [address]- 8115 Jan, [facility] [address] [id number] [address] Sep, [facility] [place] [facility] [address] [id number] [place] [address]- 3053 Sep, [facility] [place] [facility] [address] [id number] [place] [address]- 0100 Sep, [facility] [place] [facility] [address] [id number] [place] [address]- 7814 Jul, [facility] [place] [facility] [address] [facility] [id number] [place] [address] Jul, [facility] [address] [facility] [id number][place] [id number] Jul, [facility] [address] [facility] [id number], [place] [address] 3840 June, [facility] [address] [facility] [id number], [place] [address] 1987 June, [facility] [address] [facility] [id number], [place] [address]- 5581 June, [place] [address] [facility] [id number], [place] [address]- 7337 May, IMMUNIZATIONS No Known Immunizations SOCIAL HISTORY Never Assessed REASON FOR VISIT cleaning PLAN OF CARE Activity Details Follow Up 1hr TE #1 AND #32.1 1.5 HR srp WITH ANESTHESIA Reason: VITAL SIGNS Height 64 in 2017-09-28 Blood pressure systolic 133 mmHg 2017-09-28 Blood pressure diastolic 74 mmHg 2017-09-28 MEDICATIONS Medication Instructions Dosage Frequency Start Date End Date Duration Status Lisinopril 10 mg take 1 tablet by Oral route 1 time per day Take in am Dec, Not-Taking Hydrocortisone 2.5 % 1 adelaide by Topical route 3 times per day June, Not-Taking Qvar 80 mcg/actuation 2 Puff by Oral route every 12 hours rinse mouth before and after use Dec, Not-Taking Simvastatin 20 mg 1 tablet by Oral route 1 time per day Dec, Not-Taking Albuterol Sulfate 2.5 mg /3 mL (0.083 %) every 4-6 hours June, Active Hydrochlorothiazide 12.5 mg 1 Tablet by Oral route 1 time per day Dec, Active Tamiflu 75 MG Orally Once a day 1 capsule 24h Feb, 10 days Not -Taking Flagyl 500 mg 1 tablet by Oral route 2 times per day for 7 days Dec Not-Taking Aspirin 81 Active BuPROPion HCl Active Doxycycline Active Claritin 10 mg 1 Tablet by Oral route 1 time per day Apr, Not-Taking ProAir HFA 90 mcg/actuation Inhalation every 4-6 hrs 2 puffs as needed Nov, 30 days Active Celexa 20 mg 1 Tablet 1 time per day Dec, Not-Taking Escitalopram Oxalate Active Atenolol 50 mg 1 Tablet by Oral route 1 time per day Dec, Active amlodipine 5 mg 1 Tablet by Oral route 1 time per day Dec, Active Dicyclomine HCl Active Azithromycin 250 mg 2 Tablet by Oral route on day 1 then take 1 daily for 5 days Jan, Not-Taking Naproxen 500 mg take 1 tablet (500 mg) by oral route 2 times per day with food PRN Nov, Not-Taking Metformin HCl Active RESULTS No Results PROCEDURES Procedure Date Ordered Result Body Site COMP ORAL EVALUATION - NEW/EST PT Sep 28, 2017 INTRAORL - CMPL SERIES CODE [id number] Sep 28, 2017 INSTRUCTIONS MEDICATIONS ADMINISTERED No Known Medications MEDICAL (GENERAL) HISTORY Type Description Date Medical History HBP Medical History Depresion Medical History Diabetes II Surgical History Complete Hysterectomy Surgical History Spleen removed due to cancer 2013 Surgical History Breast biopsy 1980 Surgical History Colon surgery 1993 Surgical History Neck surgery 2016 Hospitalization History Possible anuersym August 2017 Hospitalization History Hysterectomy Hospitalization History Colon surgery and spleen
--- OUTSIDE RECORDS SUMMARY | 2018-03-01 09:46 | XMS REPORT ---
Author Author DENNIS HUBBARD [facility] Address [address] [place] [address] Care Team Providers Care Instrument Panel Assembler Name Role Phone DENNIS HUBBARD Unavailable PROBLEMS Type Condition ICD9-CM Code HWD40-YI Code Onset Dates Condition Status SNOMED Code Problem Unspecified vaginitis and vulvovaginitis 616.10 Active 754988053 Problem Unspecified essential hypertension 401.9 Active 82004460 Problem Acute sinusitis, unspecified 461.9 Active 80733642 Problem Pure hyperglyceridemia 272.1 Active 806625238 Problem Obesity, unspecified 278.00 Active 023435574 Problem Allergic rhinitis due to pollen 477.0 Active 80390612 Problem Essential hypertension, benign 401.1 Active 5928842 Problem Morbid obesity 278.01 Active 619560022 Problem Tension headache 307.81 Active 679708335 Problem Other screening mammogram V76.12 Active 51760572 Problem Routine gynecological examination V72.31 Active [id number] Problem Need for prophylactic vaccination and inoculation, Influenza V04.81 Active 816488240 Problem Unspecified breast screening V76.10 Active 927697220 Problem Unspecified sleep disturbance 780.50 Active 87562394 Problem Other specified counseling V65.49 Active 431534435 Problem Asthma, unspecified, unspecified status 493.90 Active [id number] ALLERGIES No Information ENCOUNTERS Encounter Location Date Diagnosis [facility] [address] [id number] [id number] Dec, [facility] [place] [id number] [facility] [address] [id number] [id number] Nov, Encounter for immunization Z23 [facility] [address] [facility] [address] [id number] [id number] Sep, Dental examination Z01.20 [facility] [address] [id number] [id number] Feb, [facility] [address] [facility] [address] [id number][place] [id number] June, [facility] [place] [facility] [address] [id number] [place] [address] May, [facility] [place] [facility] [address] [facility] [id number] [place] [address] May, [facility] [place] [facility] [address] [facility] [id number] [place] [address] Apr, [facility] [place] [facility] [address] [facility] [id number] [place] [address] Apr, [facility] [place] [facility] [address] [facility] [id number] [place] [address] Jan, [facility] [place] [facility] [address] [facility] [id number] [place] [address] Jan, [facility] [place] [facility] [address] [facility] [id number], [place] [address] Dec, [facility] [place] [facility] [address] [facility] [id number] [place] [address] Dec, [facility] [place] [facility] [address] [facility] [id number], [place] [address] Dec, [facility] [place] [facility] [address] [facility] [id number], [place] [address] Dec, [facility] [place] [facility] [address] [id number], [place] [address] Dec, [facility] [place] [facility] [address] [facility] [id number], [place] [address] Dec, [facility] [place] [facility] [address] [facility] [id number], [place] [address] Dec, [facility] [place] [facility] [address] [facility] [id number], [place] [address] Dec, [facility] [place] [facility] [address] [facility] [id number], [place] [address] Nov, [facility] [place] [facility] [address] [id number], [place] [address] Nov, [facility] [place] [facility] [address] [id number], [place] [address] Nov, [facility] [place] [facility] [address] [id number], [place] [address] Nov, [facility] [place] [facility] [address] [id number], [place] [address] Oct, [facility] [place] [facility] [address] [id number], [place] [address] Oct, [facility] [place] [facility] [address] [facility] [id number] [place] [address] Oct, [facility] [address] [id number][place] [id number] Oct, [facility] [place] [facility] [address] [id number], [place] [address] 15 Oct, 2013 [facility] [place] [facility] [address] [id number], [place] [address] Oct, [facility] [place] [facility] [address] [id number], [place] [address] Oct, [facility] [place] [facility] [address] [id number], [place] [address] Oct, [facility] [place] [facility] [address] [id number], [place] [address] Oct, [facility] [place] [facility] [address] [id number], [place] [address] Oct, [facility] [place] [facility] [address] [id number], [place] [address] 02 Oct, 2013 [facility] [place] [facility] [address] [id number], [place] [address] 15 Aug, 2013 [facility] [place] [facility] [address] [id number] [place] [address] Aug, [facility] [place] [facility] [address] [id number] [place] [address] Aug, [facility] [place] [facility] [address] [id number] [place] [address] Aug, [facility] [place] [facility] [address] [id number] [place] [address] Aug, [facility] [place] [facility] [address] [id number] [place] [address]- [address] Aug, [facility] [place] [facility] [address] [id number] [place] [address] Aug, [facility] [place] [facility] [address] [id number] [place] [address] Jul, [facility] [place] [facility] [address] [id number] [place] [address] Jul, [facility] [place] [facility] [address] [id number] [place] [address] Jul, [facility] [place] [facility] [address] [id number] [place] [address] Jul, [facility] [place] [facility] [address] [id number] [place] [address] June, [facility] [place] [facility] [address] [id number] [place] [address] June, [facility] [place] [facility] [address] [id number] [place] [address] May, [facility] [place] [facility] [address] [id number] [place] [address] May, [facility] [place] [facility] [address] [id number] [place] [address] May, [facility] [place] [facility] [address] [id number] [place] [address] May, [facility] [place] [facility] [address] [id number] [place] [address] 6[address] May, [facility] [address] [id number] [place] [address] May, [facility] [address] [id number] [place] [address] Apr, [facility] [address] [id number] [place] [address] 3947 Apr, [facility] [address] [id number] [place] [address] Feb, [facility] [address] [id number] [place] [address] Feb, [facility] [address] [id number] [place] Jan, [facility] [address] [id number] [place] [address] Jan, [facility] [address] [id number] [place] [address] 1817 Jan, [facility] [address] [id number] [place] [address] 7865 Jan, [facility] [address] [id number] [place] [address]- [address] Jan, [facility] [address] [id number] [place] [address]- 8716 Jan, [facility] [address] [id number] [place] [id number] Sep, [facility] [place] [facility] [address] [id number] [place] [address] Sep, [facility] [place] [facility] [address] [id number] [place] [address] Sep, [facility] [address] [id number] [place] [address]- [address] Jul, [facility] [address] [facility] [id number] [place] [address] Jul, [facility] [address] [facility] [id number][place] [id number] Jul, [facility] [address] [facility] [id number], [place] [address] June, [facility] [address] [facility] [id number], [place] [address] June, [facility] [address] [facility] [id number], [place] [address] June, [facility] [address] [facility] [id number], [place] [address] May, IMMUNIZATIONS Vaccine Route Administration Date Status FLULAVAL QUAD 0.5ML (6 MO & UP) 2018 IM Intramuscular Nov 20, 2017 Administered SOCIAL HISTORY Never Assessed REASON FOR VISIT flu shot Yolanda WALKER PLAN OF CARE VITAL SIGNS MEDICATIONS Unknown Medications RESULTS No Results PROCEDURES Procedure Date Ordered Result Body Site FLULAVAL QUAD 0.5ML (6 MO AND UP) 2018 Nov 20, 2017 SINGLE IMMUNIZATION ADMIN Nov 20, 2017 INSTRUCTIONS MEDICATIONS ADMINISTERED No Known Medications MEDICAL (GENERAL) HISTORY Type Description Date Medical History HBP Medical History Depresion Medical History Diabetes II Surgical History Complete Hysterectomy Surgical History Spleen removed due to cancer 2013 Surgical History Breast biopsy 1980 Surgical History Colon surgery 1994 Surgical History Neck surgery 2016 Hospitalization History Possible anuersym August 2017 Hospitalization History Hysterectomy Hospitalization History Colon surgery and spleen
--- OUTSIDE RECORDS SUMMARY | 2018-03-01 09:47 | XMS REPORT | Continuity of Care Document ---
Author Author [facility] Address Unknown Phone Unavailable Allergies Active Description Code Type Severity Reaction Onset Reported/Identified Relationship to Patient Clinical Status Yes Codeine Drug Allergy N/A N/A 07/02/2012 Yes Penicillins Drug Allergy N/A N/A 07/02/2012 Yes aspirin [id number] Drug Allergy Unknown NAUSEA 08/11/2016 Yes codeine [id number] Drug Allergy Unknown NAUSEA 08/11/2016 Yes latex [id number] Drug Allergy Unknown HIVES 08/11/2016 Yes Penicillins [id number] Drug Allergy Unknown HIVES 08/11/2016 Medications There is no data. Problems Date Dx Coded Attending Type Code Diagnosis Diagnosed By 07/02/2012 278.00 OBESITY 07/02/2012 401.9 ESSENTIAL HYPERTENSION 07/02/2012 493.90 ASTHMA 07/02/2012 V76.12 Mammogram Screening 07/02/2012 278.00 OBESITY 07/02/2012 401.9 ESSENTIAL HYPERTENSION 07/02/2012 493.90 ASTHMA 07/02/2012 V76.12 Mammogram Screening 07/02/2012 278.00 OBESITY 07/02/2012 401.9 ESSENTIAL HYPERTENSION 07/02/2012 493.90 ASTHMA 07/02/2012 V76.12 Mammogram Screening 07/02/2012 278.00 OBESITY 07/02/2012 401.9 ESSENTIAL HYPERTENSION 07/02/2012 493.90 ASTHMA 07/02/2012 V76.12 Mammogram Screening 07/02/2012 ANTOINE ESTEVES DDS 278.00 OBESITY 07/02/2012 ANTOINE ESTEVES DDS 401.9 ESSENTIAL HYPERTENSION 07/02/2012 ANTOINE ESTEVES DDS 493.90 ASTHMA 07/02/2012 ANTOINE ESTEVES DDS V76.12 Mammogram Screening 07/02/2012 DENNIS HUBBARD APRN 278.00 OBESITY 07/02/2012 DENNIS HUBBARD APRN 401.9 ESSENTIAL HYPERTENSION 07/02/2012 EATON MEDICAL VOUCHER CLERK, DENNIS L 493.90 ASTHMA 07/02/2012 EATON MEDICAL VOUCHER CLERK, DENNIS L V76.12 Mammogram Screening 07/02/2012 HIGGINS DO, ERMA K 278.00 OBESITY 07/02/2012 HIGGINS DO, ERMA K 401.9 ESSENTIAL HYPERTENSION 07/02/2012 HIGGINS DO, ERMA K 493.90 ASTHMA 07/02/2012 HIGGINS DO, ERMA K V76.12 Mammogram Screening 07/02/2012 SAHARA MEDICAL VOUCHER CLERK, MARIA VICTORIA A 278.00 OBESITY 07/02/2012 SAHARA MEDICAL VOUCHER CLERK, MARIA VICTORIA A 401.9 ESSENTIAL HYPERTENSION 07/02/2012 SAHARA MEDICAL VOUCHER CLERK, MARIA VICTORIA A 493.90 ASTHMA 07/02/2012 SAHARA MEDICAL VOUCHER CLERK, MARIA VICTORIA A V76.12 Mammogram Screening 07/02/2012 EATON MEDICAL VOUCHER CLERK, DENNIS L 278.00 OBESITY 07/02/2012 EATON MEDICAL VOUCHER CLERK, DENNIS L 401.9 ESSENTIAL HYPERTENSION 07/02/2012 EATON MEDICAL VOUCHER CLERK, DENNIS L 493.90 ASTHMA 07/02/2012 EATON MEDICAL VOUCHER CLERK, DENNIS L V76.12 Mammogram Screening 07/02/2012 HIGGINS DO, ERMA K 278.00 OBESITY 07/02/2012 HIGGINS DO, ERMA K 401.9 ESSENTIAL HYPERTENSION 07/02/2012 HIGGINS DO, ERMA K 493.90 ASTHMA 07/02/2012 HIGGINS DO, ERMA K V76.12 Mammogram Screening 07/02/2012 DOUGLAS DDS, DESIREE M 278.00 OBESITY 07/02/2012 DOUGLAS DDS, DESIREE M 401.9 ESSENTIAL HYPERTENSION 07/02/2012 DOUGLAS DDS, DESIREE M 493.90 ASTHMA 07/02/2012 DOUGLAS DDS, DESIREE M V76.12 Mammogram Screening 07/02/2012 SAHARA MEDICAL VOUCHER CLERK, MARIA VICTORIA A 278.00 OBESITY 07/02/2012 SAHARA MEDICAL VOUCHER CLERK, MARIA VICTORIA A 401.9 ESSENTIAL HYPERTENSION 07/02/2012 SAHARA MEDICAL VOUCHER CLERK, MARIA VICTORIA A 493.90 ASTHMA 07/02/2012 SAHARA MEDICAL VOUCHER CLERK, MARIA VICTORIA A V76.12 Mammogram Screening 07/02/2012 EATON MEDICAL VOUCHER CLERK, DENNIS L 278.00 OBESITY 07/02/2012 EATON MEDICAL VOUCHER CLERK, DENNIS L 401.9 ESSENTIAL HYPERTENSION 07/02/2012 EATON MEDICAL VOUCHER CLERK, DENNIS L 493.90 ASTHMA 07/02/2012 STEVIE MORRISN, DENNIS L V76.12 Mammogram Screening 07/02/2012 STEVIE MORRISN, DENNIS L 278.00 OBESITY 07/02/2012 STEVIE MORRISN, DENNIS L 401.9 ESSENTIAL HYPERTENSION 07/02/2012 STEVIE MORRISN, DENNIS L 493.90 ASTHMA 07/02/2012 STEVIE MORRISN, DENNIS L V76.12 Mammogram Screening 08/03/2012 272.1 PURE HYPERGLYCERIDEMIA 08/03/2012 401.1 HYPERTENSION, BENIGN ESSENTIAL 08/03/2012 477.0 ALLERGIC RHINITIS DUE TO POLLEN 08/03/2012 LINN DDS, ANTOINE D 272.1 PURE HYPERGLYCERIDEMIA 08/03/2012 LINN DDS, ANTOINE D 401.1 HYPERTENSION, BENIGN ESSENTIAL 08/03/2012 LINN DDS, ANTOINE D 477.0 ALLERGIC RHINITIS DUE TO POLLEN 08/03/2012 STEVIE MORRISN, DENNIS L 272.1 PURE HYPERGLYCERIDEMIA 08/03/2012 STEVIE MORRISN, DENNIS L 401.1 HYPERTENSION, BENIGN ESSENTIAL 08/03/2012 STEVIE MORRISN, DENNIS L 477.0 ALLERGIC RHINITIS DUE TO POLLEN 08/03/2012 HIGGINS DO, ERMA K 272.1 PURE HYPERGLYCERIDEMIA 08/03/2012 HIGGINS DO, ERMA K 401.1 HYPERTENSION, BENIGN ESSENTIAL 08/03/2012 HIGGINS DO, ERMA K 477.0 ALLERGIC RHINITIS DUE TO POLLEN 08/03/2012 SAHARA MEDICAL VOUCHER CLERK, MARIA VICTORIA A 272.1 PURE HYPERGLYCERIDEMIA 08/03/2012 SAHARA MEDICAL VOUCHER CLERK, MARIA VICTORIA A 401.1 HYPERTENSION, BENIGN ESSENTIAL 08/03/2012 SAHARA MEDICAL VOUCHER CLERK, MARIA VICTORIA A 477.0 ALLERGIC RHINITIS DUE TO POLLEN 08/03/2012 STEVIE MORRISN, DENNIS L 272.1 PURE HYPERGLYCERIDEMIA 08/03/2012 STEVIE MORRISN, DENNIS L 401.1 ESSENTIAL HYPERTENSION BENIGN 08/03/2012 EATON MEDICAL VOUCHER CLERK, DENNIS L 477.0 ALLERGIC RHINITIS DUE TO POLLEN 08/03/2012 HIGGINS DO, ERMA K 272.1 PURE HYPERGLYCERIDEMIA 08/03/2012 HIGGINS DO, ERMA K 401.1 HYPERTENSION, BENIGN ESSENTIAL 08/03/2012 HIGGINS DO, ERMA K 477.0 ALLERGIC RHINITIS DUE TO POLLEN 08/03/2012 DOUGLAS DDS, DESIREE M 272.1 PURE HYPERGLYCERIDEMIA 08/03/2012 DOUGLAS DDS, DESIREE M 401.1 HYPERTENSION, BENIGN ESSENTIAL 08/03/2012 DOUGLAS DDS, DESIREE M 477.0 ALLERGIC RHINITIS DUE TO POLLEN 08/03/2012 SAHARA MEDICAL VOUCHER CLERK, MARIA VICTORIA A 272.1 PURE HYPERGLYCERIDEMIA 08/03/2012 SAHARA MEDICAL VOUCHER CLERK, MARIA VICTORIA A 401.1 HYPERTENSION, BENIGN ESSENTIAL 08/03/2012 SAHARA MEDICAL VOUCHER CLERK, MARIA VICTORIA A 477.0 ALLERGIC RHINITIS DUE TO POLLEN 08/03/2012 EATON MEDICAL VOUCHER CLERK, DENNIS L 272.1 PURE HYPERGLYCERIDEMIA 08/03/2012 EATON MEDICAL VOUCHER CLERK, DENNIS L 401.1 HYPERTENSION, BENIGN ESSENTIAL 08/03/2012 EATON MEDICAL VOUCHER CLERK, DENNIS L 477.0 ALLERGIC RHINITIS DUE TO POLLEN 08/03/2012 EATON MEDICAL VOUCHER CLERK, DENNIS L 272.1 PURE HYPERGLYCERIDEMIA 08/03/2012 EATON MEDICAL VOUCHER CLERK, DENNIS L 401.1 HYPERTENSION, BENIGN ESSENTIAL 08/03/2012 EATON MEDICAL VOUCHER CLERK, DENNIS L 477.0 ALLERGIC RHINITIS DUE TO POLLEN 01/26/2013 EATON MEDICAL VOUCHER CLERK, DENNIS L V04.81 FLU SHOT 01/26/2013 HIGGINS DO, ERMA K V04.81 FLU SHOT 01/26/2013 SAHARA MEDICAL VOUCHER CLERK, MARIA VICTORIA A V04.81 FLU SHOT 01/26/2013 EATON MEDICAL VOUCHER CLERK, DENNIS L V04.81 FLU SHOT 01/26/2013 HIGGINS DO, ERMA K V04.81 FLU SHOT 01/26/2013 DOUGLAS DDS, DESIREE M V04.81 FLU SHOT 01/26/2013 SAHARA MEDICAL VOUCHER CLERK, MARIA VICTORIA A V04.81 FLU SHOT 01/26/2013 EATON MEDICAL VOUCHER CLERK, DENNIS L V04.81 FLU SHOT 01/26/2013 EATON MEDICAL VOUCHER CLERK, DENNIS L V04.81 FLU SHOT 02/04/2013 HIGGINS DO, ERMA K 461.9 SINUSITIS ACUTE 02/04/2013 SAHARA MEDICAL VOUCHER CLERK, MARIA VICTORIA A 461.9 SINUSITIS ACUTE 02/04/2013 EATON MEDICAL VOUCHER CLERK, DENNIS L 461.9 SINUSITIS ACUTE 02/04/2013 HIGGINS DO, ERMA K 461.9 SINUSITIS ACUTE 02/04/2013 DOUGLAS DDS, DESIREE M 461.9 SINUSITIS ACUTE 02/04/2013 SAHARA MORRISPEREZ CartyIDI A 461.9 SINUSITIS ACUTE 02/04/2013 STEVIE MORRISMachelle DENNIS L 461.9 SINUSITIS ACUTE 02/04/2013 STEVIE MORRISN, DENNIS L 461.9 SINUSITIS ACUTE 03/09/2013 SAHARA MEDICAL VOUCHER CLERK MARIA VICTORIA A 278.01 MORBID OBESITY 03/09/2013 SAHARA MEDICAL VOUCHER CLERK, MARIA VICTORIA A V65.49 OTHER SPECIFIED COUNSELING 03/09/2013 SAHARA MEDICAL VOUCHER CLERK MARIA VICTORIA A V72.31 FACILITY ENVIRONMENTAL TECHNICIAN EXAM, ROUTINE 03/09/2013 SAHARA MEDICAL VOUCHER CLERK MARIA VICTORIA A V76.10 BREAST CANCER SCREENING 03/09/2013 STEVIE MORRISBIANKA CartySON L 278.01 OBESITY MORBID 03/09/2013 STEVIE MORRISBIANKA CartySON L V65.49 OTHER SPECIFIED COUNSELING 03/09/2013 TSEVIE DENNIS GILLIS L V72.31 FACILITY ENVIRONMENTAL TECHNICIAN EXAM, ROUTINE 03/09/2013 EATELIAN MORRISDENNIS Carty L V76.10 BREAST CANCER SCREENING 03/09/2013 HIGGINS DO ERMA K 278.01 OBESITY MORBID 03/09/2013 HIGGINS DO ERMA K V65.49 OTHER SPECIFIED COUNSELING 03/09/2013 HIGGINS DO ERMA K V72.31 FACILITY ENVIRONMENTAL TECHNICIAN EXAM, ROUTINE 03/09/2013 HIGGINS DO ERMA K V76.10 BREAST CANCER SCREENING 03/09/2013 DOUGLAS DDS, DESIREE M 278.01 OBESITY MORBID 03/09/2013 DOUGLAS DDS, DESIREE M V65.49 OTHER SPECIFIED COUNSELING 03/09/2013 DOUGLAS DDS, DESIREE M V72.31 FACILITY ENVIRONMENTAL TECHNICIAN EXAM, ROUTINE 03/09/2013 DOUGLAS DDS, DESIREE M V76.10 BREAST CANCER SCREENING 03/09/2013 SAHARA ELIS MARIA VICTORIA A 278.01 OBESITY MORBID 03/09/2013 SAHARA ELIS MARIA VICTORIA A V65.49 OTHER SPECIFIED COUNSELING 03/09/2013 SAHARA MEDICAL VOUCHER CLERK, MARIA VICTORIA A V72.31 FACILITY ENVIRONMENTAL TECHNICIAN EXAM, ROUTINE 03/09/2013 SAHARA ELIS MARIA VICTORIA A V76.10 BREAST CANCER SCREENING 03/09/2013 EATON BIANKA GILLISSON L 278.01 OBESITY MORBID 03/09/2013 STEVIE MORRISNBIANKADENNIS L V65.49 OTHER SPECIFIED COUNSELING 03/09/2013 EATON MEDICAL VOUCHER CLERKBIANKADENNIS L V72.31 FACILITY ENVIRONMENTAL TECHNICIAN EXAM, ROUTINE 03/09/2013 EATON MEDICAL VOUCHER CLERKBIANKADENNIS L V76.10 BREAST CANCER SCREENING 03/09/2013 STEVIE MORRISNBIANKADENNIS L 278.01 OBESITY MORBID 03/09/2013 STEVIE MORRISNBIANKADENNIS L V65.49 OTHER SPECIFIED COUNSELING 03/09/2013 STEVIE MORRISNBIANKADENNIS L V72.31 FACILITY ENVIRONMENTAL TECHNICIAN EXAM, ROUTINE 03/09/2013 STEVIE MORRISNBIANKADENNIS L V76.10 BREAST CANCER SCREENING 04/26/2013 EATON MEDICAL VOUCHER CLERK, DENNIS L 307.81 TENSION-TYPE HEADACHE 04/26/2013 EATON MEDICAL VOUCHER CLERK, DENNIS L 780.50 sleep disturbances 04/26/2013 HIGGINS DO ERMA K 307.81 TENSION-TYPE HEADACHE 04/26/2013 HIGGINS DO, ERMA K 780.50 sleep disturbances 04/26/2013 DOUGLAS DDS, DESIREE M 307.81 TENSION-TYPE HEADACHE 04/26/2013 DOUGLAS DDS, DESIREE M 780.50 sleep disturbances 04/26/2013 SAHARA MEDICAL VOUCHER CLERK, MARIA VICTORIA A 307.81 TENSION-TYPE HEADACHE 04/26/2013 SAHARA MEDICAL VOUCHER CLERK, MARIA VICTORIA A 780.50 sleep disturbances 04/26/2013 EATON MEDICAL VOUCHER CLERK, DENNIS L 307.81 TENSION-TYPE HEADACHE 04/26/2013 EATON MEDICAL VOUCHER CLERK, DENNIS L 780.50 sleep disturbances 04/26/2013 EATON MEDICAL VOUCHER CLERK, DENNIS L 307.81 TENSION-TYPE HEADACHE 04/26/2013 EATON MEDICAL VOUCHER CLERK, DENNIS L 780.50 sleep disturbances 11/23/2013 EATDENNIS PLUMMER L OFFICE NURSE PRACTITIONER Ot 327.23 OBSTRUCTIVE SLEEP APNEA (ADULT) (PEDIATR 12/15/2013 EATON MEDICAL VOUCHER CLERK DENNIS L 616.10 VAGINITIS AND VULVOVAGINITIS UNSPECIFIED 12/15/2013 EATON MEDICAL VOUCHER CLERK, DENNIS L 616.10 VAGINITIS AND VULVOVAGINITIS UNSPECIFIED 08/11/2016 FRANCHESKA NASH DO Ot M50.223 OTHER CERVICAL DISC DISPLACEMENT AT C6-C 08/11/2016 FRANCHESKA NASH DO Ot Z01.812 ENCOUNTER FOR PREPROCEDURAL LABORATORY E 08/11/2016 FRANCHESKA NASH DO Ot Z11.2 ENCOUNTER FOR SCREENING FOR OTHER BACTER 08/26/2016 FRANCHESKA NASH DO Ot E11.9 TYPE 2 DIABETES MELLITUS WITHOUT COMPLIC 08/26/2016 FRANCHESKA NASH DO Ot E66.01 MORBID (SEVERE) OBESITY DUE TO EXCESS CA 08/26/2016 FRANCHESKA NASH DO Ot F31.9 BIPOLAR DISORDER, UNSPECIFIED 08/26/2016 FRANCHESKA NASH DO Ot G47.33 OBSTRUCTIVE SLEEP APNEA (ADULT) (PEDIATR 08/26/2016 FRANCHESKA NASH DO Ot I10 ESSENTIAL (PRIMARY) HYPERTENSION 08/26/2016 FRANCHESKA NASH DO Ot J44.9 CHRONIC OBSTRUCTIVE PULMONARY DISEASE, U 08/26/2016 FRANCHESKA NASH DO Ot J45.909 UNSPECIFIED ASTHMA, UNCOMPLICATED 08/26/2016 FRANCHESKA NASH DO Ot M48.02 SPINAL STENOSIS, CERVICAL REGION 08/26/2016 FRANCHESKA NASH DO Ot M50.20 OTHER CERVICAL DISC DISPLACEMENT, UNSP C 08/26/2016 FRANCHESKA NASH DO Ot Z68.44 BODY MASS INDEX (BMI) 60.0-69.9, ADULT 08/26/2016 FRANCHESKA NASH DO Ot Z79.899 OTHER ENDOSCOPY SUPPORT SPECIALIST (CURRENT) DRUG THERAPY 08/26/2016 FRANCHESKA NASH DO Ot Z87.891 PERSONAL HISTORY OF NICOTINE DEPENDENCE 08/26/2016 FRANCHESKA NASH DO Ot E11.9 TYPE 2 DIABETES MELLITUS WITHOUT COMPLIC 08/26/2016 FRANCHESKA NASH DO Ot E66.01 MORBID (SEVERE) OBESITY DUE TO EXCESS CA 08/26/2016 FRANCHESKA NASH DO Ot F31.9 BIPOLAR DISORDER, UNSPECIFIED 08/26/2016 FRANCHESKA NASH DO Ot G47.33 OBSTRUCTIVE SLEEP APNEA (ADULT) (PEDIATR 08/26/2016 FRANCHESKA NASH DO Ot I10 ESSENTIAL (PRIMARY) HYPERTENSION 08/26/2016 FRANCHESKA NASH DO Ot J44.9 CHRONIC OBSTRUCTIVE PULMONARY DISEASE, U 08/26/2016 FRANCHESKA NASH DO Ot J45.909 UNSPECIFIED ASTHMA, UNCOMPLICATED 08/26/2016 FRANCHESKA NASH DO Ot M48.02 SPINAL STENOSIS, CERVICAL REGION 08/26/2016 FRANCHESKA NASH DO Ot M50.20 OTHER CERVICAL DISC DISPLACEMENT, UNSP C 08/26/2016 FRANCHESKA NASH DO Noah Ot Z68.44 BODY MASS INDEX (BMI) 60.0-69.9, ADULT 08/26/2016 FRANCHESKA NASH DO Ot Z79.899 OTHER ENDOSCOPY SUPPORT SPECIALIST (CURRENT) DRUG THERAPY 08/26/2016 FRANCHESKA NASH DO Ot Z87.891 PERSONAL HISTORY OF NICOTINE DEPENDENCE 02/26/2018 FRANCHESKA NASH DO Ot M48.02 SPINAL STENOSIS, CERVICAL REGION 02/26/2018 SAAD HARDY FRANCHESKA Zamora Ot Z01.812 ENCOUNTER FOR PREPROCEDURAL LABORATORY E 02/26/2018 SAAD HARDY FRANCHESKA Zamora Ot Z11.2 ENCOUNTER FOR SCREENING FOR OTHER BACTER Procedures Code [place] [address] MICRO ALBUMIN-IN HOUSE 07/02/2012 04255 MAMMOGRAM, SCREENING 07/03/2012 64268 ROUTINE VENIPUNCTURE 2012 19069 CMP 2012 25991 LIPID PANEL 2012 5263276 GFR CALC (RESULT ONLY) 2012 64072 A1C (RML) 2012 05678 TSH 2012 51259 PULMONARY FUNCTION TEST (IN- HOUSE) 09/24/2012 30374 BRONCHODILATION PRE/POST 09/24/2012 33538 RESPIRATORY FLOW VOLUME LOOP 09/24/2012 99692 PULMONARY EDUCATION 09/24/2012 27967 A1C (IN-HOUSE) 01/26/2013 12528 OXIMETRY 02/04/2013 20457 MICRO ALBUMIN-IN HOUSE 04/26/2013 10588 SLEEP STUDY ([facility] SLEEP STUDY) 05/31/2013 59314 CMP 05/31/2013 65601 LIPID PANEL 05/31/2013 92963 ROUTINE VENIPUNCTURE 05/31/2013 31652 MAMMOGRAM, SCREENING 08/17/2013 88248 UA LONG DIP 12/15/2013 70426 CMP 12/15/2013 98052 LIPID PANEL 12/15/2013 34268 A1C (RML) 12/15/2013 Results Test Result Range Complete blood count (CBC) with automated white blood cell (WBC) differential - 08/11/16 13:38 Blood leukocytes automated count (number/volume) 7.9 10*3/uL 4.3-11.0 Blood erythrocytes automated count (number/volume) 4.95 10*6/uL 4.35-5.85 Venous blood hemoglobin measurement (mass/volume) 14.7 g/dL 11.5-16.0 Blood hematocrit (volume fraction) 45 % 35-52 Automated erythrocyte mean corpuscular volume 91 [foz_us] 80-99 Automated erythrocyte mean corpuscular hemoglobin (mass per erythrocyte) 30 pg 25-34 Automated erythrocyte mean corpuscular hemoglobin concentration measurement ( mass/volume) 33 g/dL 32-36 Automated erythrocyte distribution width ratio 16.3 % 10.0-14.5 Automated blood platelet count (count/volume) 305 10*3/uL 130-400 Automated blood platelet mean volume measurement 10.3 [foz_us] 7.4-10.4 Automated blood neutrophils/100 leukocytes 55 % 42-75 Automated blood lymphocytes/100 leukocytes 33 % 12-44 Blood monocytes/100 leukocytes 10 % 0-12 Automated blood eosinophils/100 leukocytes 2 % 0-10 Automated blood basophils/100 leukocytes 1 % 0-10 Blood neutrophils automated count (number/volume) 4.3 10*3 1.8-7.8 Blood lymphocytes automated count (number/volume) 2.6 10*3 1.0-4.0 Blood monocytes automated count (number/volume) 0.8 10*3 0.0-1.0 Automated eosinophil count 0.2 10*3/uL 0.0-0.3 Automated blood basophil count (count/volume) 0.1 10*3/uL 0.0-0.1 Whole blood basic metabolic panel - 08/11/16 13:38 Serum or plasma sodium measurement (moles/volume) 140 mmol/L 135-145 Serum or plasma potassium measurement (moles/volume) 3.4 mmol/L 3.6-5.0 Serum or plasma chloride measurement (moles/volume) 101 mmol/L 98-107 Carbon dioxide 24 mmol/L 21-32 Serum or plasma anion gap determination (moles/volume) 15 mmol/L 5-14 Serum or plasma urea nitrogen measurement (mass/volume) 14 mg/dL 7-18 Serum or plasma creatinine measurement (mass/volume) 0.71 mg/dL 0.60-1.30 Serum or plasma urea nitrogen/creatinine mass ratio 20 NRG Serum or plasma creatinine measurement with calculation of estimated glomerular filtration rate > NRG Serum or plasma glucose measurement (mass/volume) 201 mg/dL 70-105 Serum or plasma calcium measurement (mass/volume) 9.9 mg/dL 8.5-10.1 Blood type T Indirect antibody screen panel - 08/11/16 13:38 ABO+Rh group OP NRG Blood group antibody screen NEGATIVE NRG Methicillin resistant Staphylococcus aureus (MRSA) screening culture - 13:38 Methicillin resistant Staphylococcus aureus (MRSA) screening culture NEG NRG Blood type T Indirect antibody screen panel - 08/25/16 06:50 ABO+Rh group OP NRG Transfusion band number [id number] NRG Blood group antibody screen NEGATIVE NRG Capillary blood glucose measurement by glucometer (mass/volume) - 08/25/16 07: 20 Capillary blood glucose measurement by glucometer (mass/volume) 126 mg/dL 70-110 Complete blood count (CBC) with automated white blood cell (WBC) differential - 02/24/18 10:31 Blood leukocytes automated count (number/volume) 8.6 10*3/uL 4.3-11.0 Blood erythrocytes automated count (number/volume) 4.90 10*6/uL 4.35-5.85 Venous blood hemoglobin measurement (mass/volume) 14.6 g/dL 11.5-16.0 Blood hematocrit (volume fraction) 44 % 35-52 Automated erythrocyte mean corpuscular volume 89 [foz_us] 80-99 Automated erythrocyte mean corpuscular hemoglobin (mass per erythrocyte) 30 pg 25-34 Automated erythrocyte mean corpuscular hemoglobin concentration measurement ( mass/volume) 33 g/dL 32-36 Automated erythrocyte distribution width ratio 16.7 % 10.0-14.5 Automated blood platelet count (count/volume) 316 10*3/uL 130-400 Automated blood platelet mean volume measurement 10.2 [foz_us] 7.4-10.4 Automated blood neutrophils/100 leukocytes 51 % 42-75 Automated blood lymphocytes/100 leukocytes 33 % 12-44 Blood monocytes/100 leukocytes 12 % 0-12 Automated blood eosinophils/100 leukocytes 3 % 0-10 Automated blood basophils/100 leukocytes 1 % 0-10 Blood neutrophils automated count (number/volume) 4.4 10*3 1.8-7.8 Blood lymphocytes automated count (number/volume) 2.9 10*3 1.0-4.0 Blood monocytes automated count (number/volume) 1.0 10*3 0.0-1.0 Automated eosinophil count 0.2 10*3/uL 0.0-0.3 Automated blood basophil count (count/volume) 0.1 10*3/uL 0.0-0.1 Whole blood basic metabolic panel - 02/24/18 10:31 Serum or plasma sodium measurement (moles/volume) 137 mmol/L 135-145 Serum or plasma potassium measurement (moles/volume) 3.6 mmol/L 3.6-5.0 Serum or plasma chloride measurement (moles/volume) 101 mmol/L 98-107 Carbon dioxide 23 mmol/L 21-32 Serum or plasma anion gap determination (moles/volume) 13 mmol/L 5-14 Serum or plasma urea nitrogen measurement (mass/volume) 13 mg/dL 7-18 Serum or plasma creatinine measurement (mass/volume) 0.77 mg/dL 0.60-1.30 Serum or plasma urea nitrogen/creatinine mass ratio 17 NRG Serum or plasma creatinine measurement with calculation of estimated glomerular filtration rate > NRG Serum or plasma glucose measurement (mass/volume) 111 mg/dL 70-105 Serum or plasma calcium measurement (mass/volume) 9.9 mg/dL 8.5-10.1 Methicillin resistant Staphylococcus aureus (MRSA) screening culture - 10:31 Methicillin resistant Staphylococcus aureus (MRSA) screening culture NEG NRG Encounters ACCT No. Visit Date/Time Discharge Status Pt. Type Provider Facility Loc./Unit Complaint [id number] 12/15/2013 14:17:00 12/15/2013 23:59:59 CLS Outpatient DENNIS HUBBARD APRN [id number] 12/15/2013 14:17:00 12/15/2013 23:59:59 CLS Outpatient DENNIS HUBBARD APRN [id number] 08/17/2013 09:18:00 08/17/2013 23:59:59 CLS Outpatient MARIA VICTORIA SHOEMAKER APRN [id number] 06/13/2013 15:31:00 06/13/2013 23:59:59 CLS Outpatient DESIREE COLE DDS [id number] 05/31/2013 08:55:00 05/31/2013 23:59:59 CLS Outpatient ERMA HIGGINS DO [id number] 04/26/2013 13:34:00 04/26/2013 23:59:59 CLS Outpatient DENNIS HUBBARD APRN [id number] 03/09/2013 09:37:00 03/09/2013 23:59:59 CLS Outpatient MARIA VICTORIA SHOEMAKER APRN [id number] 02/04/2013 10:54:00 02/04/2013 23:59:59 CLS Outpatient ERMA HIGGINS DO [id number] 01/26/2013 11:33:00 01/26/2013 23:59:59 CLS Outpatient STEVIE MEDICAL VOUCHER CLERK DENNIS Bear [id number] 01/05/2013 09:01:00 01/05/2013 23:59:59 CLS Outpatient ANTOINE ESTEVES DDS Jaja [id number] 09/24/2012 10:44:00 Document Registration [id number] 2012 07:55:00 Document Registration [id number] 07/02/2012 14:35:00 Document Registration [id number] 07/02/2012 14:35:00 Document Registration [id number] 01/05/2018 08:00:00 01/05/2018 23:59:59 CLS Outpatient SELVIN MEREDITH LAC [id number] 02/24/2018 09:40:00 02/24/2018 10:45:00 DIS Outpatient FRANCHESKA NASH DO [facility] PREOP C5-C6 ACDF WITH HARDWARE REMOVAL [id number] 08/25/2016 06:32:00 08/26/2016 13:37:00 DIS Outpatient [facility] CERVICAL HERNIATED NUCLEUS PULPOSUS [id number] 08/11/2016 12:47:00 08/11/2016 13:45:00 DIS Outpatient FRANCHESKA NASH DO [facility] PREOP HERNIATED NUCLEOUS PULPOSUS [id number] 11/22/2013 19:12:00 11/23/2013 06:30:00 DIS Outpatient DENNIS HUBBARD [facility] SLEEP BRITTA [id number] 03/01/2018 09:30:00 PEN Preadmit FRANCHESKA NASH DO [facility] STENOSIS
[2018-03-01 10:30] VITALS: BP 127/82
[2018-03-01] MEDS ORDERED: MIDAZOLAM 2 MG/2 ML (VERSED) VIAL ONE (12:53)
[2018-03-01] MEDS ORDERED: LACTATED RINGERS 1,000 ML IV ONE (12:53)
[2018-03-01] MEDS ORDERED: fentaNYL INJECTION 100 MCG/2 ML AMP ONE ×2 (12:53→14:15)
[2018-03-01] MEDS ORDERED: ROCURONIUM 10 MG/ML 5 ML SYRINGE IV ONE (12:53)
[2018-03-01] MEDS ORDERED: ONDANSETRON 4 MG/2 ML (SDV) Z0FRAN ONE (12:53)
[2018-03-01] MEDS ORDERED: SUCCINYLCHOLINE INJ 100 MG/5 ML SYR ONE (12:53)
[2018-03-01] MEDS ORDERED: proPOfol 200 MG/20 ML (DIPRIVAN) VIAL IV ONE (12:53)
[2018-03-01] MEDS ORDERED: LIDOCAINE PF 2% 5 ML (XYLOCAINE) VIAL ONE (12:53)
[2018-03-01] MEDS: CLINDAMYCIN 600 MG/50 ML IVPB 50 ML IV ONE ×2 (12:57→13:50)
[2018-03-01] MEDS ORDERED: PROPOFOL INJECTION 100 ML IV ONE (13:49)
[2018-03-01] MEDS ORDERED: DESFLURANE (SUPRANE) 15 ML INHAL SOLN ONE (14:27)
[2018-03-01] MEDS ORDERED: morphine INJ 10 MG/ML 1ML (SYR OR VIAL) IM PRN (14:45)
[2018-03-01] MEDS ORDERED: BISACODYL 5 MG (DULCOLAX) TABLET PO PRN (14:45)
[2018-03-01] MEDS ORDERED: ACETAMINOPHEN 325 MG TABLET PO PRN (14:45)
[2018-03-01] MEDS ORDERED: oxyCODONE/APAP 5/325MG (PERCOCET 5) TABLET PO PRN (14:45)
[2018-03-01] MEDS ORDERED: ONDANSETRON 4 MG/2 ML (SDV) Z0FRAN IV PRN (14:45)
[2018-03-01] MEDS ORDERED: ONDANSETRON 4 MG/2 ML (SDV) Z0FRAN IVP PRN (15:00)
[2018-03-01] MEDS ORDERED: MEPERIDINE (DEMEROL) INJ 50 MG/ML IVP ONE (15:00)
[2018-03-01] MEDS ORDERED: morphine INJ 10 MG/ML 1ML (SYR OR VIAL) IVP ONE (15:00)
[2018-03-01] MEDS ORDERED: morphine INJ 10 MG/ML 1ML (SYR OR VIAL) ONE (15:12)
--- NOTE | 2018-03-01 15:22 | Diagnostic Imaging Report ---
INDICATION: Back pain. IMPRESSION: 12.7 seconds of fluoroscopy and two digital images were used for localization in Surgery during C5-6 hardware removal. Dictated by: Dictated on workstation # [id number]
[2018-03-01 16:00] VITALS: BP 131/73
--- NOTE | 2018-03-01 16:00 | NUR ---
EBONY GONZALEZ admitted to room 431-1, with an admitting diagnosis of ACDF, on from DAY SURGERY via BED, accompanied by STAFF.EBONY GONZALEZ introduced to surroundings, call light, bed controls, phone, TV, temperature control, lights, meal times, smoking policy, visitor policy, side rail policy, bathrooms and showers. Patient Rights given to patient in the handbook. EBONY GONZALEZ verbalizes understanding that [facility] is not responsible for the loss or damage to any personal effects or valuables that are kept in the patients posession during their hospitalization.
[2018-03-01] MEDS ORDERED: RT-ALBUTEROL SULF 2.5 MG/3 ML PRE-MIX VIAL IH PRN ×2 (17:30)
[2018-03-01] MEDS: FAMOTIDINE 20 MG (PEPCID) TABLET PO SCH (18:33)
[2018-03-01 20:55] VITALS: BP 136/76
[2018-03-01] MEDS ORDERED: NS IV 1000 ML 1,000 ML ONE (20:59)
[2018-03-01] MEDS ORDERED: buPROPion XL 150 MG (WELLBUTRIN XL) NON-FORM PO SCH (21:00)
[2018-03-01] MEDS: inSUlin ASPART (NovoLOG) 1 UNIT/0.01 ML (CHARGE PER UNIT) SC SCH (21:01)
[2018-03-01] MEDS: NS IV 1000 ML 1,000 ML IV SCH (21:09)
[2018-03-01] MEDS: CLINDAMYCIN 900 MG/50 ML IVPB 50 ML IV SCH (21:09)
[2018-03-01] MEDS: DICYCLOMINE 10 MG (BENTYL) CAP PO SCH (21:09)
[2018-03-01 23:49] VITALS: BP 149/70
[2018-03-02 03:48] VITALS: BP 116/61
[2018-03-02] MEDS: CLINDAMYCIN 900 MG/50 ML IVPB 50 ML IV SCH ×2 (04:45→11:43)
[2018-03-02] MEDS: inSUlin ASPART (NovoLOG) 1 UNIT/0.01 ML (CHARGE PER UNIT) SC SCH ×4 (05:27→20:29)
[2018-03-02] MEDS: MULTIVIT W/MINERALS TAB (THERAGRAN M) PO SCH (06:06)
[2018-03-02] MEDS: buPROPion SR 150 MG (WELLBUTRIN SR) TAB PO SCH ×2 (06:06→17:14)
[2018-03-02] MEDS: FAMOTIDINE 20 MG (PEPCID) TABLET PO SCH ×2 (06:06→17:54)
[2018-03-02 08:00] VITALS: BP 131/74
[2018-03-02] MEDS: HYDROCHLOROTHIAZIDE 25 MG (HCTZ) TAB PO SCH (08:56)
[2018-03-02] MEDS: ATENOLOL 50 MG (TENORMIN) TAB PO SCH (08:56)
[2018-03-02] MEDS: DICYCLOMINE 10 MG (BENTYL) CAP PO SCH ×2 (08:56→20:57)
[2018-03-02] MEDS: amLODIPine 5 MG (NORVASC) TAB PO SCH (08:56)
--- NOTE | 2018-03-02 08:57 | Physical Therapy Evaluation ---
PT Evaluation-General Medical Diagnosis Admission Date 03/01/18 Medical Diagnosis: Stenosis Onset Date: Mar 01, 2018 Therapy Diagnosis Therapy Diagnosis: gait deviation Height/Weight Height (Feet): 5 Height (Inches): 2.00 Weight (Pounds): 311 Weight (Ounces): 2.0 Precautions Precautions/Isolations: Fall Prevention, Standard Precautions Weight Bear Status Right Lower Extremity: Right Full Weight Bearing Left Lower Extremity: Left Full Weight Bearing Referral Physician: Santos Mireles Reason for Referral: Evaluation/Treatment Medical History Additional Medical History Obesity cervical surgery 2 years ago Social History Home: Single Level Current Living Status: Children Entry Into Home: Stairs With Railing PT Steps Into Home: 3 Prior/Core FIM Prior Level of Function Therapy Code Descriptions/Definitions Functional Dustin Measure: 0=Not Assessed/NA 4=Minimal Assistance 1=Total Assistance 5=Supervision or Setup 2=Maximal Assistance 6=Modified Dustin 3=Moderate Assistance 7=Complete Dustin Therapy Quality Codes: 6 Independent with activity with or without an assistive device 5 Patient requires set up or clean up by helper. Patient completes activity by themselves 4 Supervision or touching assist (CGA). [place] provide cues , steadying assist 3 The helper provides less than half the effort to complete the activity 2 The helper provides more than half the effort to complete the activity 1 Dependent. The helper does all the effort to complete an activity 7 Patient refused to complete or attempt activity 9 The patient did not perform the activity before the current illness or injury 88 Not attempted due to Medical conditions or safety concerns Functional Abilities and Goals: Independent: Patient completed the activities by him/herself, with or without an assistive device, with no assistance from a helper. Needed Some Help: Patient needed partial assistance from another person to complete activities. Dependent: A helper completed the activities for the patient. Unknown: Not Applicable: Bed Mobility: 7 Transfers (B,C,W/C) (FIM): 7 Gait: 7 Stairs: 7 Indoor Mobility (Ambulation): Independent Stairs: Independent Prior Devices Use: None PT Evaluation-Current Subjective Pt was in bed and agreed to PT. Pain Numeric Pain Scale: 5-Moderate Pain Location Body Site: Throat Pt/Family Goals Pt to return home with children. Objective Patient Orientation: Person, Normal For Age Attachments: Oxygen, IV Pt reports that she is not usually on oxygen. Integumentary/Posture Bowel Incontinence: No Bladder Incontinence: No Sensory Vision: Functional Hearing: Functional Sensation Right Lower Extremit: Intact Sensation Left Lower Extremity: Intact Transfers Therapy Code Descriptions/Definitions Functional Dustin Measure: 0=Not Assessed/NA 4=Minimal Assistance 1=Total Assistance 5=Supervision or Setup 2=Maximal Assistance 6=Modified Dustin 3=Moderate Assistance 7=Complete Dustin Transfers (B, C, W/C) (FIM): 6 Scootin Supine to/from Sit: 6 Sit to/from Stand: 6 Gait Mode of Locomotion: Walk Anticipated Mode of Locomotion: Walk Gait (FIM): 7 Distance (FIM): 3=150 ft Distance: 500' Gait Level of Assist: 7 Gait Assistive Device: None Comments/Gait Description PT helped assist with IV pole. Balance Sitting Static: Good Sitting Dynamic: Good Standing Static: Good Standing Dynamic: Good Assessment/Needs Pt was able to get from supine to sitting EOB with use of bed rails. Pt did need assistance by PT with donning sock due to neck brace. Pt was able to sit<> stand by pushing off bed. Pt amb 500' independently with PT maneuvering IV pole pt did use rails in halls. PT instructed pt to get up and move during the day ad helen and to take IV pole with her. Pt is up in recliner with breakfast and all needs met. No skilled PT indicated at this time. Rehab Potential: Good PT Plan Problem List Problem List: Activity Tolerance Treatment/Plan Treatment Plan: Discontinue PT Treatment Plan: Other PT to DC Treatment Duration: Mar 02, 2018 Frequency: Estimated Hrs Per Day: Other Patient and/or Family Agrees t: Yes Discharge Recommendations Therapy D/C Recommendations: Home w/ Family Support Time/GCodes Time In: 759 Time Out: 807 Total Billed Treatment Time: 8 Total Billed Treatment 1 visit EVlowC 8 min MISTY ANGUIANO PT Mar 02, 2018 08:57
[2018-03-02] MEDS ORDERED: NON-FORMULARY MEDICATION 1 EA EA (Escitalopram Oxalate 20 MG) PO SCH (09:00)
[2018-03-02] MEDS ORDERED: NON-FORMULARY MEDICATION 1 EA EA (Hydrochlorothiazide 25 MG) PO SCH (09:00)
[2018-03-02] MEDS ORDERED: NON-FORMULARY MEDICATION 1 EA EA (Amlodipine Besylate 5 MG) PO SCH (09:00)
--- NOTE | 2018-03-02 10:02 | Anesthesia-General Post-Op ---
General Patient Condition Mental Status/LOC: Same as Preop Cardiovascular: Satisfactory Nausea/Vomiting: Absent Respiratory: Satisfactory Pain: Controlled Complications: Absent Post Op Complications Complications None Follow Up Care/Instructions Patient Instructions None needed. Anesthesia/Patient Condition Patient Condition Patient is doing well, no complaints, stable vital signs, no apparent adverse anesthesia problems. No complications reported per nursing. BEATRIS PEGUERO CRNA Mar 02, 2018 10:02
[2018-03-02] MEDS: NS IV 1000 ML 1,000 ML IV SCH (10:37)
--- NOTE | 2018-03-02 11:43 | OPERATIVE REPORT ---
DATE OF SERVICE: 03/01/2018 SURGEON: Rafal Barajas DO ENCODING MACHINE OPERATOR: FIDE Warren. This is a medically necessary procedure. Assistance was necessary for retraction of vital neurovascular structures. Without an front office assistant, the procedure would not be possible. PREOPERATIVE DIAGNOSES: 1. Cervical stenosis (central, connective tissue, bony). 2. Cervical radiculopathy. 3. Adjacent segment disease. 4. Morbid obesity. POSTOPERATIVE DIAGNOSES: 1. Cervical stenosis (central, connective tissue, bony). 2. Cervical radiculopathy. 3. Adjacent segment disease. 4. Morbid obesity. PROCEDURES PERFORMED: 1. C5-C6 anterior cervical diskectomy and fusion. 2. Application of titanium interbody cage C5-C6. 3. Application of anterior instrumentation, C5-C6. 4. Use of human Allograft for spine. 5. Use of local bone autograft. 6. Removal of hardware. COMPLICATIONS: None. SPECIMEN SENT: None. DRAIN PLACED: Efren-Alejandra. ESTIMATED BLOOD LOSS: Minimal. ANESTHESIA: General endotracheal tube anesthesia with local anesthetic. HISTORY OF PRESENT ILLNESS: The patient is a very pleasant 52-year-old obese female, who had undergone a prior C6-C7 instrumented anterior cervical diskectomy and fusion. She did go on to have adjacent segment disease with severe stenosis at C5-C6. She did wish to proceed with operative intervention. Her existing plate was in a location that precluded placement of another plate. Therefore, it was decided we would remove that plate at the time of C5-C6 surgery. DESCRIPTION OF PROCEDURE: The patient was identified by name on wrist band in the preoperative holding area. Her operative site was signed, consent was signed. SCDs were placed. Neuro monitoring was hooked up and antibiotics were started. She was taken to the operating room theater and placed under general endotracheal tube anesthesia and then transferred to the operating room table in the supine position. She was prepped and draped in the usual sterile fashion. Formal time out was conducted. At this point, I made an incision over the medial aspect of the left sternocleidomastoid just above her old scar. I proceeded with standard anterior cervical approach exposing the existing hardware C6-C7. I did remove the existing plate without difficulty. I then turned my attention to C5-C6. I placed a Goodman pin in the body of C5 and in the body of C6. I placed distraction across it. I then performed an annulotomy followed by complete diskectomy. I took down the posterior longitudinal ligament and I performed bilateral foraminotomies. I then sized and chose the appropriate titanium interbody spacer, packed it with human allograft and I seated it in the midline position and then I chose the appropriate size plate. I placed it in the midline position, placed screws through that plate into the body of C5 and screws through the plate into the body of C6. I finally tightened those screws. Final AP and lateral x-ray demonstrated appropriate positioning of the hardware. I placed a deep STELLA drain alongside the plate, I sewed it into place. I irrigated the wound, maintained hemostasis and I closed the wound utilizing 3-0 Vicryl followed by running 3-0 subcuticular stitch. I applied dressings, took the patient in the supine position to the PACU where she awoke without incident. She tolerated the procedure well. The plan at this time is to admit the patient for IV antibiotics, IV pain control and postoperative monitoring. The plan is to have the patient wear a brace while out of bed, keep the wound clean and dry and covered for 2 weeks. Please note, instrumentation utilized for this procedure was [employer]. Job ID: [id number] DocumentID: [id number] Dictated Date: 03/02/2018 07:57:14 Bonsai Tender Date: 03/02/2018 11:43:10 Dictated By: RAFAL BARAJAS DO
[2018-03-02 12:00] VITALS: BP 126/61
--- NOTE | 2018-03-02 12:54 | Diagnostic Imaging Report ---
PATIENT HISTORY: post op. TECHNIQUE: Two views of the cervical spine. COMPARISON: 08/26/2016. FINDINGS: A C-collar is in place. There has been removal of the anterior plate at C6-C7, with anterior fusion of C5-C6. A disc spacer is placed at C5-C6 and at C6-C7. There is marked prevertebral soft tissue edema, consistent with postoperative status. Alignment otherwise appears normal. No evidence of immediate hardware complication is seen. IMPRESSION: Anterior fusion at C5-6 with no immediate hardware complication seen. There is marked prevertebral soft tissue edema, consistent with postop status. Dictated by: Dictated on workstation # [id number]
[2018-03-02 16:00] VITALS: BP 131/80
--- NOTE | 2018-03-02 16:02 | Occ Therapy Progress Note ---
Therapy Progress Note OT order received, chart reviewed. Pt. sitting up on bed with leg extended. Pt. alert and oriented and very pleasant. OT explained who she was and purpose of treatment. Pt. states that she has been getting up to [facility] on her own, and only requires assist with toileting due to IV placement in arm. Pt. states that if this were not there, she would have no trouble. OT asks questions regarding dressing, assist at home, etc... Pt. states that this is her second neck surgery, and that she is aware of any precautions. Pt. states that she is able to don/doff her slipper socks, as she takes them off when getting into bed. Pt. also reports that she lives with her grown children, and that they can assist in any way. Pt. did not have any needs at this time, nor did she feel that she needed to practice ADLs before discharge. All needs met in room. OT not warranted at this time. [id number] 1, visit Discharge ULYSSES DACOSTA OT Mar 02, 2018 16:02
--- NOTE | 2018-03-02 17:11 | Progress Note (SOAP) ---
Subjective Date Seen by a Provider: Mar 02, 2018 Time Seen by a Provider: 17:09 Subjective/Events-last exam NENA. DOing well. some trouble swallowing. denies radiating arm pain. denies N/V/ CP/SOB Objective Exam Vital Signs Date Time Temp Pulse Resp B/P (MAP) Pulse Ox O2 Delivery O2 Flow Rate FiO2 03/02/18 12:00 98.2 63 20 126/61 (82) 90 Nasal Cannula 2.00 03/02/18 08:00 97.8 69 20 131/74 (93) 91 Nasal Cannula 2.00 03/02/18 07:31 Nasal Cannula 1.50 03/02/18 03:48 98.6 66 20 116/61 (79) 95 Nasal Cannula 2.00 03/01/18 23:49 98.0 69 20 149/70 (96) 95 Nasal Cannula 2.00 03/01/18 21:00 Nasal Cannula 2.00 03/01/18 20:55 97.3 69 18 136/76 (96) 93 Nasal Cannula 2.00 03/01/18 18:58 94 Nasal Cannula 2.00 I & O 03/02/18 07:00 Intake Total 1067 ml Output Total 1250 ml Balance -183 ml Capillary Refill : General Appearance: No Apparent Distress Extremity: Other (wound CDI, 5/5 motor johanne UE, NVSI) Results Lab Laboratory Tests 03/01/18 20:55: Glucometer 205H 03/02/18 05:25: Glucometer 135H 03/02/18 11:42: Glucometer 103 03/02/18 16:51: Glucometer 127H Assessment/Plan Assessment/Plan Assess & Plan/Chief Complaint ASSESSMENT: POD 1 s/p ACDF PLAN: home thursday ADAT keep dressings CDI Clinical Quality Measures DVT/VTE Risk/Contraindication: Risk Factor Score Per Nursin RFS Level Per Nursing on Admit: 3=High FRANCHESKA NASH DO Mar 02, 2018 17:11
[2018-03-02] MEDS: HYDROcodone/APAP 5 MG/325 MG (LORTAB) TAB PO PRN ×2 (17:13→20:58)
[2018-03-02 20:00] VITALS: BP 115/63
[2018-03-03] VITALS: BP 117/54
[2018-03-03] MEDS: inSUlin ASPART (NovoLOG) 1 UNIT/0.01 ML (CHARGE PER UNIT) SC SCH ×2 (05:35→11:56)
[2018-03-03] MEDS: FAMOTIDINE 20 MG (PEPCID) TABLET PO SCH (05:37)
[2018-03-03] MEDS: buPROPion SR 150 MG (WELLBUTRIN SR) TAB PO SCH (05:37)
[2018-03-03] MEDS: MULTIVIT W/MINERALS TAB (THERAGRAN M) PO SCH (05:37)
[2018-03-03] MEDS: HYDROcodone/APAP 5 MG/325 MG (LORTAB) TAB PO PRN ×2 (05:38→09:39)
[2018-03-03 08:00] VITALS: BP 113/61
[2018-03-03] MEDS: HYDROCHLOROTHIAZIDE 25 MG (HCTZ) TAB PO SCH (09:39)
[2018-03-03] MEDS: DICYCLOMINE 10 MG (BENTYL) CAP PO SCH (09:39)
[2018-03-03] MEDS: amLODIPine 5 MG (NORVASC) TAB PO SCH (09:39)
[2018-03-03] MEDS: ATENOLOL 50 MG (TENORMIN) TAB PO SCH (11:56)
[2018-03-03] MEDS ORDERED: OXYC1TAB87 PO (12:34)
--- NOTE | 2018-03-03 12:35 | Discharge Inst-Simple/Standard ---
Discharge Inst-Standard Discharge Medications New, Converted or Re-Newed RX: RX on Chart Patient Instructions/Follow Up Plan of Care/Instructions/FU: wear c-collar dont bend lift twist push or pull keep incision clean and dry follow up in clinic in 2 weeks Activity as Tolerated: No Discharge Diet: ADA Diet Return to The Hospital For: shortness of breath fever chills chest pain ANGELLA FERNANDEZ Mar 03, 2018 12:35
--- NOTE | 2018-03-03 12:38 | Discharge Summary ---
Diagnosis/Chief Complaint Date of Admission 03/01/2018 Date of Discharge 03/03/2018 Admission Diagnosis Admission Diagnosis cervical stenosis with radiculopathy Discharge Diagnosis same Reason Hospital Visit c5-6 acdf with removal of hardware Discharge Summary Hospital Course Was the Problem List Reviewed?: Yes Hospital Course patient admitted for acdf. She tolerated with procedure well without complications. By POD #2 her vss, pain was controlled, and she progressed with PT. She was dismissed home on POD #2 Labs Laboratory Tests 1 09:32: 03/01/18 14:57: Glucometer 114H 03/01/18 20:55: Glucometer 205H 03/02/18 05:25: Glucometer 135H 03/02/18 11:42: 03/02/18 16:51: Glucometer 127H 03/02/18 20:28: 03/03/18 05:34: 03/03/18 11:07: Procedures None. Discharge Physical Examination Allergies: Coded Allergies: Penicillins (Verified Allergy, Unknown, HIVES, 08/11/16) aspirin (Verified Allergy, Unknown, can take coated aspirin without problems, 03/01/18) codeine (Verified Allergy, Unknown, NAUSEA, 08/11/16) latex (Verified Allergy, Unknown, HIVES, 08/11/16) Vitals & I&Os Vital Signs Date Time Temp Pulse Resp B/P (MAP) Pulse Ox O2 Delivery O2 Flow Rate FiO2 03/03/18 00:00 98.0 59 18 117/54 (75) 97 Room Air 03/02/18 20:00 2.00 General Appearance: Alert, Oriented X3, No Acute Distress Respiratory: Normal Air Movement Cardiovascular: Regular Rate Extremities: No Clubbing, No Cyanosis, No Edema, Normal Pulses Skin: No Rashes, No Breakdown Neuro: Normal Gait, Normal Speech, Strength at 5/5 X4 Ext, Sensation Intact Discharge Home Medications Reviewed and agree with Discharge Medication list on patient's Discharge Instruction sheet Instructions to Patient/Family Please see electronic discharge instructions given to patient. Clinical Quality Measures DVT/VTE Risk/Contraindication: Risk Factor Score Per Nursin RFS Level Per Nursing on Admit: 3=High ANGELLA FERNANDEZ Mar 03, 2018 12:38
[2018-03-03 13:45] VITALS: BP 113/61
== END 2018-03-03 13:45 | disposition home or self-care (01) ==
LOC: SDC 09:20 → 4TH 16:42 → SDC 03-03 13:45
PROVIDERS: ATTEND Orthopaedic Surgery
DX: M48.02 Spinal stenosis, cervical region (principal); M54.12 Radiculopathy, cervical region; E66.01 Morbid (severe) obesity due to excess calories; M99.51 Intervertebral disc stenosis of neural canal of cervical region; F31.9 Bipolar disorder, unspecified; E11.9 Type 2 diabetes mellitus without complications; I10 Essential (primary) hypertension; G47.33 Obstructive sleep apnea (adult) (pediatric); J45.909 Unspecified asthma, uncomplicated; Z79.84 Long term (current) use of oral hypoglycemic drugs; Z79.899 Other long term (current) drug therapy; K21.9 Gastro-esophageal reflux disease without esophagitis; Z85.09 Personal history of malignant neoplasm of other digestive organs; Z90.81 Acquired absence of spleen; Z88.0 Allergy status to penicillin; Z88.5 Allergy status to narcotic agent; Z88.8 Allergy status to other drugs, medicaments and biological substances; Z68.43 Body mass index [BMI] 50.0-59.9, adult
CPT/HCPCS: 72040; 82962; 86850; 86900; 86901; 94664

== ENCOUNTER → 2019-04-28 | Outpatient (CLI) | payer MEDICAID ==
[~2019-04-28] VITALS: Ht 157.5 cm; Wt 143.6 kg
[~2019-04-28] MED LIST changes: +LIDOCAINE 1% INJ 20 ML 20 ML VIAL INJ ONE; +METF500T19 PO; -METF500T8 PO
--- NOTE | 2019-04-28 12:19 | Diagnostic Imaging Report ---
INDICATION: Left thyroid nodule. Patient presents for ultrasound-guided fine-needle aspiration. The patient was brought to the procedure and placed on the table in the supine position. Ultrasound imaging of the left neck was performed to evaluate appropriate entry site. Left neck was then prepped and draped in the usual sterile fashion. A total of 3 passes were made into the hypoechoic nodule in the posterior inferior aspect of the left lobe of the thyroid utilizing 25-gauge needles and fine-needle aspiration technique. Overall procedure is somewhat challenging due to patient large body habitus and deep nature of the nodule. IMPRESSION: Single guided fine-needle aspiration left lower pole thyroid nodule. Pathology results are currently pending. Dictated by: Dictated on workstation # [id number]
== END ==
LOC: RAD 09:55
PROVIDERS: ATTEND Otolaryngology
DX: E04.1 Nontoxic single thyroid nodule (principal)
CPT/HCPCS: 88173; 88305